=== PATIENT | female | born 2000 | race Caucasian/White ===

== ENCOUNTER 2023-06-09 01:46 | Emergency (ER) | payer OTHER, SELFPAY ==
[2023-06-09 01:50] VITALS: BP 114/79; PULSE 94; RESP 16; TEMP 36.4; O2SAT 98
--- NOTE | 2023-06-09 02:22 | CRLHL7_ITS ---
For Patients: As a result of the Cures Act, medical imaging exams and procedure reports are released immediately into your electronic medical record. You may view this report before your referring provider. If you have questions, please contact your health care provider. INDICATION: T10 pain. No trauma. COMPARISON: None. TECHNIQUE: Frontal lateral views of the thoracic spine. FINDINGS/IMPRESSION : Alignment is anatomic, without subluxation. Vertebral body heights and intervertebral disc spaces are maintained. No displaced fracture is identified. No appreciable degenerative changes are seen. Visualized lungs are clear. Dictated by Joellen Hernández MD @ 06/09/2023 5:07:53 AM (Electronically Signed)
[2023-06-09] MEDS: IBUPROFEN 400 MG TABLET 800 MG PO (02:26)
--- NOTE | 2023-06-09 02:26 | ED.GENADULT ---
HPI - General Adult General Chief complaint: Back Injury/Pain Stated complaint: Back Pain Time Seen by Provider: 06/09/23 02:13 Source: patient Mode of arrival: ambulatory Limitations: no limitations History of Present Illness HPI narrative: Patient presents the emergency department with back pain for 3 days. Mild, achy in nature. No trauma or injury. She woke up an hour ago and the pain was more burning in nature. Because of this, she comes to the emergency room. There is no fever, no vomiting. No itchy rash. She tried taking 1 ibuprofen which would be grossly under dosed for her size yesterday and the day before with no significant improvement in her symptoms. Has not tried Tylenol. She does have some mild nausea for the last hour. Denies chance of . Appetite has been normal. No burning with urination. No flank pain. No shortness of breath or cough. No cardiac symptoms. Past medical history notable for anxiety disorder, fatty liver, asthma. Home meds are Advair, Celexa, albuterol singular. Nonsmoker. Denies alcohol. ROS notable for the musculoskeletal symptoms as above, otherwise denies times 12 systems. Eight emergency room visits in the last 4 years. Related Data Previous Rx's Medication Instructions Recorded celecoxib 200 mg capsule (Celebrex) 200 mg PO BID PRN pain #20 caps 06/09/23 cyclobenzaprine 5 mg tablet 5 - 10 mg (1 - 2 x 5 mg) PO HS PRN 06/09/23 muscle spasm #10 tabs Allergies Allergy/AdvReac Type Severity Reaction Status Date / Time No Known Drug Allergies Allergy Verified 06/09/23 01:50 PFSH PFS Social History Smoking Status: Unknown if ever smoked Non-prescribed substance use: denies use Exam Const: Vital Signs, click to edit/add: Vital Signs - 24 hr 06/09/23 01:50 Temperature 97.5 F L Pulse Rate [Left P ulse Oximeter] 94 Respiratory Rate 16 Blood Pressure [Ri ght Upper Arm] 114/79 Pulse Oximetry 98 Oxygen Delivery Me thod Room Air Documenting provider has reviewed patient's vital signs: yes Common normals: no apparent distress General appearance: cooperative and well kempt HENMT: Common normals: normocephalic Head and scalp: normocephalic Face and sinus: normal facial exam Mouth: oral and palatal mucosa normal Eye: Common normals: conjunctivae normal General eye: normal appearance of both eyes Conjunctiva: conjunctiva(e) normal Neck & C-Spine: Common normals: no lymphadenopathy Resp: Common normals: normal respiratory effort, no use of accessory muscles and clear to auscultation bilaterally Effort & inspection: able to speak in complete sentences Auscultation: clear to auscultation bilaterally Cardio: Common normals: regular rate, regular rhythm, S1 normal heart sound, S2 normal heart sound and no murmurs Rate: regular rate Rhythm: regular rhythm Heart sounds: S1 normal and S2 normal GI: Common normals: Normal to inspection, nondistended, normoactive bowel sounds present, soft to palpation, non-tender, no hepatosplenomegaly and no masses Palpation: soft and no hepatosplenomegaly : Common normals: no CVA tenderness Bladder/kidney exam: no CVA tenderness Back & Pelvis: Common normals: no CVA tenderness and thoracic and lumbar spine normal to inspection Other: Mild tenderness to palpation along T10 area and surrounding paraspinal muscles. Extremity: Common normals: normal to inspection and normal capillary refill Neuro: Speech: speech normal Motor exam: strength 5/5 throughout Psych: Appearance: well kempt Attitude: engaged Activity/motor behavior: appropriate eye contact Memory/cognition: memory grossly intact Insight: fair Judgement: fair Skin: Common normals: no rashes or lesions noted General skin exam: no rashes or lesions noted Course Course ED Course: Suspect musculoskeletal etiology. Cannot exclude pancreatitis, gallbladder disease, urinary infection or other pathology. Recommend x-ray and basic labs and urinalysis to investigate for pancreatitis or gallbladder dysfunction. Will dose appropriate 600 mg p.o. of ibuprofen x1. She would like to be able to drive herself home, therefore I will wait on a muscle relaxant. Will likely prescribe a discharge if no intra-abdominal etiology is found. Reevaluation(s) Time of Reevaluation #1: 04:40 Reevaluation #1: Discussed x-ray findings with patient, all questions answered. Did not get much relief from the ibuprofen but is still not having any significant neurological change. Recommended physical therapy, primary care follow-up. Alarm symptoms reviewed. Suspect musculoskeletal etiology. No signs of pancreatitis, kidney stones or urine infection. Normal labs reviewed. See discharge instructions. Course of Celebrex and p.r.n. Flexeril. Vital Signs Vital signs: Initial Vital Signs Temperature 97.5 F L 06/09/23 01:50 Temperature Source Temporal Artery Scan 06/09/23 01:50 Pulse Rate 94 06/09/23 01:50 Pulse Rhythm Regular 06/09/23 01:50 Respiratory Rate 16 06/09/23 01:50 Blood Pressure 114/79 06/09/23 01:50 Blood Pressure Mean 90 06/09/23 01:50 Blood Pressure Position Sitting 06/09/23 01:50 Pulse Oximetry 98 06/09/23 01:50 Oxygen Delivery Method Room Air 06/09/23 01:50 Vital Signs Temperature 97.5 F L 06/09/23 01:50 Pulse Rate 94 06/09/23 01:50 Respiratory Rate 16 06/09/23 01:50 Blood Pressure 114/79 06/09/23 01:50 Pulse Oximetry 98 06/09/23 01:50 Oxygen Delivery Method Room Air 06/09/23 01:50 Temperature 97.5 F L 06/09/23 01:50 Pulse Rate 94 06/09/23 01:50 Respiratory Rate 16 06/09/23 01:50 Blood Pressure 114/79 06/09/23 01:50 Pulse Oximetry 98 06/09/23 01:50 Oxygen Delivery Method Room Air 06/09/23 01:50 Medical Decision Making Lab Data Lab results reviewed: Yes I reviewed the patient's lab results Lab results narrative: All reassuring Labs: Lab Results 06/09/23 06/09/23 Range/Units 02:55 03:10 WBC 8.46 (4.50-11.00) K/uL RBC 5.53 H (4.00-5.20) m/uL Hgb 17.0 H (12.0-16.0) gm/dL Hct 48.9 (33.0-51.0) % MCV 88 (80-100) fL MCH 31 (26-34) pg MCHC 35 (32-36) gm/dL RDW Coeff of Ashlee 12.3 (11.5-15.5) % Plt Count 246 (140-440) K/uL Neut % (Auto) 63.2 (42.0-72.0) % Lymph % (Auto) 25.8 (20-44) % [place] % (Auto) 7.8 (0.0-11.0) % Eos % (Auto) 2.7 (0.0-7.0) % Baso % (Auto) 0.4 (0.0-3.0) % Neut # (Auto) 5.35 (1.7-7.0) K/uL Lymph # (Auto) 2.18 (0.90-2.90) K/uL [place] # (Auto) 0.70 (0.00-0.90) K/UL Eos # (Auto) 0.23 (0.00-0.50) K/uL Baso # (Auto) 0.03 (0.00-0.30) K/uL Abs Immat Gran (auto) 0.01 (0.00-0.30) K/uL Imm/Tot Granulo (auto) 0.1 % Sodium 141 (135-149) mmol/L Potassium 4.1 (3.6-5.1) mmol/L Chloride 105 (96-114) mmol/L Carbon Dioxide 27 (20-32) mmol/L Anion Gap 9 (7-15) mEq/L BUN 22 (5-24) mg/dL Creatinine 0.7 (0.5-1.5) mg/dL Estimated GFR 125 ml/min Glucose 91 (60-115) mg/dL Calcium 9.5 (8.4-10.6) mg/dL Total Bilirubin 0.8 (0.1-1.5) mg/dL AST 32 (12-35) U/L ALT 41 H (4-35) U/L Alkaline Phosphatase 48 (40-150) U/L C-Reactive Protein < 0.5 L (0.5-1.0) mg/dL Total Protein 8.0 (6.0-8.3) g/dL Albumin 4.9 (3.3-5.0) g/dL Lipase 70 (23-300) U/L Urine Color Yellow (Yellow) Urine Appearance Clear (Clear) Urine pH 7.0 (5.0-8.5) Ur Specific [place] 1.020 (1.000-1.030) Urine Protein Negative (Negative) Urine Glucose (UA) Negative (Negative) Urine Ketones Negative (Negative) Urine Blood Negative (Negative) Urine Nitrite Negative (Negative) Urine Bilirubin Negative (Negative) Urine Urobilinogen 0.2 (0.2-1.0) Ur Leukocyte Esterase Negative (Negative) Imaging Data Thoracic spine XR: Attestation: I have reviewed the pertinent imaging results. My impression: Mild scoliosis but no obvious fracture. Disc heights are preserved. Radiologist's impression: FINDINGS/IMPRESSION : Alignment is anatomic, without subluxation. Vertebral body heights and intervertebral disc spaces are maintained. No displaced fracture is identified. No appreciable degenerative changes are seen. Visualized lungs are clear. Discharge Plan Discharge Clinical Impression: Mechanical back pain Patient Disposition: Home, Self-Care Condition: Stable Instructions: Thoracic Back Strain (ED) Additional Instructions: As we discussed, there are no signs of any serious medical reason for your back pain. No signs of a kidney stone, bladder infection, pancreatitis or gallbladder issues. This is good news. You do have some mild scoliosis in her back which does unfortunately put you at higher risk of some muscular type back pain. This is not dangerous but it is likely to bother you again. I would recommend a course of physical therapy to strengthen your back. You may also consider doing chiropractic manipulation to help with her pain. For pain, I recommend Tylenol 1000 mg every 6 hours as needed. It is okay to use [id number] sleep aids such as melatonin or Tylenol p.m. as needed. You may also use topical patches like Salonpas, Wilmer-Talavera, or other topical agents. I will give you prescription for Celebrex, a common anti-inflammatory pain medication. It is non drowsy. You may use it up to twice daily. I do not recommend additional Aleve or ibuprofen if you are taking the Celebrex. I will also give you a small supply of Flexeril, a muscle relaxant to use at bedtime if needed. This will cause some drowsiness but may be a good option for you if the pain is preventing sleep. I do recommend that you follow-up with your primary care doctor to discuss the long-term plan. Activity Level: No Restrictions Discharge Diet: Regular Prescriptions: New celecoxib [Celebrex] 200 mg capsule 200 mg PO BID PRN (Reason: pain) Qty: 20 0RF cyclobenzaprine 5 mg tablet 5 - 10 mg PO HS PRN (Reason: muscle spasm) Qty: 10 0RF Follow Up/Referrals: Neela Yanez DO [Primary Care Provider] - Stand Alone Forms: MyHealth Info Instructions
[2023-06-09 03:08] LABS: Appearance Urine Clear (Clear); Bilirubin Urine Negative (Negative); Blood Urine Negative (Negative); Color Urine Yellow (Yellow); Glucose Urine Negative (Negative); Ketones Urine Negative (Negative); Leukocyte Esterase Urine Negative (Negative); Nitrite Urine Negative (Negative); Protein Urine Negative (Negative); Urobilinogen Urine 0.2 (0.2-1.0)
--- OUTSIDE RECORDS SUMMARY | 2023-06-09 03:09 | XMS_ITS | Patient Health Record ---
Author Name Unknown Organization Unknown Care Team Providers Care Television News Reporter Name Role Phone MIKE YARBROUGH NP Primary Care Provider TSACY OVIEDO LCSW Unavailable [phone] DARLING REN Unavailable [phone] ALLERGIES No Known Allergies REASON FOR REFERRAL Reason patient feels therap y would help with anxiety and depression along with prozac Diagnosis 1 Anxiety (F41.9) Diagnosis 2 Reactive depression (F32.9) Referral Organization zzz do not use29 [facility] Referring Provider First Name TRISTAN Referring Provider Last Name HERI Referring Provider Speciality Nurse Haylie garcia Referred Organization [facility] Referred Provider STACY OVIEDO Referred Address [address] [place] [address],[facility] [address], [place],[address], Referred Provider Specialty Licensed Roxanna laws [employer] Consultant General Notes Laura Paul 06/02 08:45:33 AM >Approved for 2 per every 1 week for 13 weeks. Referral Priority Routine Reason Rt FA tatoo with Fir m Papules; No granuloma ? sarcoidal reaction; Please assess. Diagnosis 1 Tattoo reaction (L92 .3) [facility]erring Provider First Name MIKE Referring Provider Last Name ZENON Referring Provider Speciality Nurse Haylie garcia Referred Provider Specialty Dermatology General Notes Leslie Bartlett 2022 05:18:47 PM >Spoke with patient regarding referral to schedule dermatology appointment. Patient states out of town in January and other commitments in March. Patient receptive of return call with dermatology schedule to schedule appointment., Leslie Bartlett 02/11/2023 01:31:31 PM >VM left informing patient of Zena 11 availability to schedule dermatology appointment., Lynda Smith 03/17/2023 03:32:39 PM >S/W pt, scheduled appt for 04/15/2023 @ 10:30, Lynda Smith 05/12/2023 03:07:56 PM >Pt seen on 04/15/2023 Referral Priority Routine Referral Appointment Date 04/15/2023 MEDICATIONS Medication SIG (Take, Route, Frequency, Duration) Notes Start Date End Date Status Advair HFA 115-21 MCG/ACT 2 puffs Inhala tion Twice a day for 30 days Active Triamcinolone Acetonide 0.1 % 1 application Twice a day x 10 days then as needed Externally Twice a day for 30 days 01/23/2023 Active Cetirizine HCl 10 MG 1 tablet Orally Onc e a day as needed for 90 days 01/23/2023 Active Singulair 10 MG 1 tablet Orally Once a day for 90 days Active Triamcinolone Acetonide 0.1 % 1 application Externally apply to affected areas up to 2 times daily PRN itch for 90 days 04/15/2023 Active CeleXA 10 MG 1 tablet Orally Once a day Active Levaquin Not-Taking Lexapro 20 MG 1 tablet Orally Once a day Not-Taking PROzac 20 MG 1 capsule Orally Onc e a day for 90 days Not-Taking Albuterol Sulfate HFA 108 (90 Base) MCG/ACT 1 puff as needed Inhalation every 4 hrs for 30 days Active PROBLEMS Problem Type ICD Code Onset Dates Problem Status W/U Status Risk SNOMED Code Notes Problem Mixed hyperlipidemia (E78.2) Active confirmed 267829404 Problem Paresthesia of skin (R20.2) Active confirmed 89768444 Problem Anxiety (F41.9) Active confirmed 801643 02 Problem Seasonal allergies (J30.2) Active confirmed 897441681 Problem Morbid obesity (E66.01) Active confirmed 731761992 Problem Depression with anxiety (F41.8) Active confirmed 434601263 Problem Menorrhagia with regular cycle (N92.0) Active confirmed 546548857 Problem Carpal tunnel syndrome of right wrist (G56.01) Active confirmed 16516186 Problem Mild persistent asthma without complication (J45.30) Active confirmed 812654930 Problem Reactive depression (F32.9) Active confirmed 67611248 Problem Lentigines (L81.4) Active confirmed Increased melan in pigmentation (36485155) Problem Mild persistent asthma with acute exacerbation (J45.31) Problem resolved confirmed 552448596602010 VITAL SIGNS Heart Rate 95 /min 01/23/2023 Ni Puentes 01/23/2023 02:51:59 PM > Temperature 98.7 degrees Fahrenheit 01/23/2023 Cassie Beyer 01/23/2023 02:51:59 PM > Respiratory Rate 16 /min 01/23/2023 Brandi Puentes 01/23/2023 02:51:59 PM > Oximetry 99 % 01/23/2023 Ni Puentes 01/23/2023 02:51:59 PM > Blood pressure diastolic 65 mm Hg 01/23/2023 Cassie Douglas 01/23/2023 02:51:59 PM > Height-cm 162.56 cm 04/15/2023 Lynda Smith MA 04/15/2023 11:12:12 AM > Weight-kg 84.91 kg 04/15/2023 Lynda Smith MA 04/15/2023 11:12:12 AM > Height 64 in 04/15/2023 Lynda Smith MA 04/15/2023 11:12:12 AM > Blood pressure systolic 95 mm Hg 01/23/2023 Cassie Beyer 01/23/2023 02:51:59 PM > Weight 187.2 lbs 04/15/2023 Lynda Smith MA 04/15/2023 11:12:12 AM > BMI 32.13 kg/m2 04/15/2023 Lynda Smith MA 04/15/2023 11:12:12 AM > Encounters Encounter Location Date Provider Diagnosis [facility] [address] [address] 07/01/2022 STACY OVIEDO [facility] [address] [address] 07/02/2022 SHANTRINIA PREET [facility] [address] [place] [address] 07/02/2022 SHANTRINIA PREET [facility] [address] [place] [address] 07/02/2022 SHANTRINIA PREET [facility] [address] [place] [address] 07/04/2022 SHANTRINIA PREET Anxiety F41.9 [facility] [address] [place] [facility] [place] [address] 07/11/2022 SHANTRINIA PREET Anxiety F41.9 [facility] [address] [place] [address] 07/11/2022 MIKE YARBROUGH Encounter for screening for infections with a predominantly sexual mode of transmission Z11.3 [facility] [address] [place] [address] 07/12/2022 SHANTRINIA PREET [facility] [address] [place] [address] 07/19/2022 SHANTRINIA PREET Anxiety F41.9 [facility] [address] [place] [address] 08/01/2022 MIKE YARBROUGH [facility] [address] [place] [address] 08/02/2022 SHANTRINIA PREET Anxiety F41.9 [facility] [address] [place] [address] 08/20/2022 SHANTRINIA PREET Anxiety F41.9 [facility] [address] [place] [address] 09/04/2022 SHANTRINIA PREET Anxiety F41.9 [facility] [address] [place] [address] 09/18/2022 SHANTRINIA PREET Anxiety F41.9 [facility] [address] [place] [address] 11/07/2022 SHANTRINIA PREET Anxiety F41.9 [facility] [address] [place] [address] 01/23/2023 [facility] Seasonal allergies J30.2 ; Tattoo reaction L92.3 ; Throat discomfort R07.0 and Mild persistent asthma without complication J45.30 [facility] [address] [place] [address] 02/27/2023 [facility] [address] [place] [address] 03/18/2023 [facility] [address] [place] [address] 04/01/2023 [facility] [address] [place] [address] 04/15/2023 DARLING LACY [facility] [address] [place] [address] 04/15/2023 DARLING LACY Keratosis pilaris L85.8 and Lentigines L81.4 [facility] [address] [place] [address] 04/28/2023 [facility] [address] [place] [address] 05/22/2023 [facility] [address] [place] [address] 05/23/2023 MIKE YARBROUGH ASSESSMENTS Encounter Date Diagnosis Assessment Notes Treatment Notes Treatment Clinical Notes 07/04/2022 Anxiety (ICD-10 - F41.9) 07/11/2022 Anxiety (ICD-10 - F41.9) 07/11/2022 Encounter for screening for infections with a predominantly sexual mode of transmission (ICD-10 - Z11.3) 07/19/2022 Anxiety (ICD-10 - F41.9) 08/02/2022 Anxiety (ICD-10 - F41.9) 08/20/2022 Anxiety (ICD-10 - F41.9) 09/04/2022 Anxiety (ICD-10 - F41.9) 09/18/2022 Anxiety (ICD-10 - F41.9) 11/07/2022 Anxiety (ICD-10 - F41.9) 01/23/2023 Seasonal allergies (ICD-10 - J30.2) 01/23/2023 Tattoo reaction (ICD-10 - L92.3) 04/15/2023 Keratosis pilaris (ICD-10 - L85.8) Discussed in detail Reassurance given Recommend to use a loofa sponge to exfoliate and moisturizing lotion Follow up PRN 04/15/2023 Lentigines (ICD-10 - L81.4) 01/23/2023 Throat discomfort (ICD-10 - R07.0) Sore Throat: Care Instructions material was printed Likely due to allergies; discussed salt water gargles. 01/23/2023 Mild persistent asthma without complication (ICD-10 - J45.30) Patient reports not needing refill. 07/04/2022 Other Visit Start Time: 10:00 AM Visit end time: 10:58 AM Clinician discussed the limits of confidentiality and time limitations with client. Clinician utilized talk therapy to engage, build rapport, and obtain the information used to complete the assessment. Clinician praised client for being able to identify strengths, something to be proud of, and coping skills. Clinician discussed a different way to journal that could also help. Clinician provided understanding to client and validated her. Clinician will work with client to develop tools and coping skills to help reduce negative symptoms and meet her goals. 04/15/2023 Other Medication discussed. Plan printed and provided to patient. For each diagnosis; data was reviewed, the diagnosis, differential diagnosis, management, options, risks and treatment plan were discussed with the patient. The patient showed and assured me of good understanding of all discussions and directions. Provided: Patient Education 01/23/2023 Other Please note david t part of this not was created by [employer]. An attempt at proofreading has been made to minimize errors. If you feel that part of the information in the note is not correct and could be related to dictation error, please let us know. Errors in punctuation, grammar, content may occur but we retain the right to modify the information in the event of errors. 09/04/2022 Other Visit Start Time: 3:00 PM Visit End Time: 3:27 PM Clinician utilized talk therapy to engage. Clinician provided active listening. Clinician praised client for practicing a bed time routine. Clinician asked client what could have triggered her. Clinician validated client's feelings. Clinician provided understanding regarding thoughts of and feeling worried about her health. Clinician asked client if she feels like something is wrong with her health. Clinician encouraged client to push the negative thoughts aside and replace them with positive thoughts. Clinician wished client well on her interview tomorrow. 09/18/2022 Other Visit Start Time: 3:00 PM Visit End Time: 3:51 PM Clinician utilized talk therapy to engage. Clinician provided active listening. Clinician shared happiness that she had a few days where she was not panicking. Clinician asked why she did something that would provoke her anxiety, and what made her check. Clinician encouraged client to limit activities such as this, especially if it is going to cause her anxiety. Clinician suggested that client distracts herself at that time. Clinician shared happiness regarding client's new job. Clinician asked client what else may be causing her to be anxious. Clinician validated client's feelings, and provided understanding. Clinician praised client for being self-aware and knowledgeable about the things that are going on with her. Clinician praised client for utilizing a coping skill. Clinician encouraged client to utilize self affirmations to encourage and motivate herself. Clinician also encouraged client to evaluate herself when she is experiencing emotions and symptoms, and talk herself through them if possible. Clinician asked client if she struggled with anxiety her whole life. Clinician continued to validate client, and thanked her for sharing. Clinician shared happiness that the medication helps. Clinician asked client if she would still be anxious if she had answers regarding her liver issue. Clinician shared hope that she will be able to get accurate answers soon. Clinician suggested that client try to do her best to limit triggers at this time. 11/07/2022 Other Visit Start Time: 1:00 PM Visit End Time: 1:54 PM Clinician utilized talk therapy to engage. Clinician provided active listening. Clinician provided empathy regarding the job situation. Clinician shared happiness that client has found out the problem and it is reversible. Clinician praised client for choosing to live her life. Clinician praised client regarding her weight loss journey and encouraged her to continue. Clinician validated client's feelings. Clinician suggested that client is going home for vacation, and it is okay for her to want to be in a comfortable space. Clinician encouraged client to communicate how she feels to her mother, and provided examples. Clinician encouraged client not to feel obligated to stay if it is not comfortable for her. Clinician encouraged client to set boundaries regarding her parents and the situation. Clinician inquired about client's anxiety. Clinician praised client for her stated progress, and shared happiness. 07/19/2022 Other Visit Start Time: 2:00 PM Visit End Time: 2:20 PM Clinician utilized talk therapy to engage. Clinician provided active listening. Clinician shared happiness that she made it through the ball, and did not get sick. Clinician asked Client how things have been. Clinician validated client's feelings. Clinician shared happiness that client had support from her previous primary doctor, and that she was improving. Clinician shared hope that she will get answers. Clinician encouraged client to look into ways to improve the liver such as drinking water, healthy diet, etc. Clinician shared excitement regarding client's interview, and shared hope that she gets the job. Clinician shared happiness that client's medication continues to work well for her. 08/02/2022 Other Visit Start Time: 11:00 AM Visit End Time: 11:41 AM Clinician utilized talk therapy to engage. Clinician provided active listening. Clinician shared happiness that client had a good Thanksgiving holiday. Clinician inquired about negative symptoms. Clinician asked questions and explored what client believes is going on with her health. Clinician pointed out that client was recently informed that her health was good, and asked why she still may have concerns. Clinician validated client's feelings. Clinician asked client what has helped to reduce her anxiety thus far. Clinician praised client for having multiple positive tools and coping skills, and encouraged her to continue utilizing them.Clinician pointed out that muscle tension is a symptom of anxiety. Clinician introduced and discussed progressive relaxation and guided meditation to also try to help client, and provided instructions. Clinician inquired about any negative symptoms during the day, and any other issues. Clinician continued to validate client. Clinician suggested that client try to stay connected with her neighbors through social media, video applications, telephone, or other types of communication platforms. Clinician reminded client to call in to schedule follow-up sessions. 07/11/2022 Other Visit Start Time: 9:00 AM Visit End Time: 9:24 AM Clinician utilized talk therapy to engage. Clinician provided active listening. Clinician inquired about negative symptoms. Clinician praised client for talking with her doctor about her concerns, and being comforted. Clinician validated client's feelings, and provided understanding. Clinician suggested that client takes safety precautions as much as she can such as hand washing, wearing mask, using hand manufacturing lead. Clinician praised client for already thinking about these things. Clinician suggested that client can also boost her immune system by drinking teas, taking supplements, and using Lysol to spray personal areas that they will be in. 08/20/2022 Other Visit Start Time: 3:00 PM Visit End Time: 3:48 PM Clinician utilized talk therapy to engage. Clinician provided active listening. Clinician inquired about what happened yesterday. Clinician validated client's feelings, and shared happiness that client had some control over her panic attack, and praised her. Clinician shared happiness that she was able to get some rest today. Clinician encouraged client to pay attention to see if the pain has anything to do with her not getting sleep or rest. We also discussed client acknowledging what else could be going on instead of thinking of immediate demise. Clinician asked client if she has taken Melatonin. Clinician continued to validate client. Clinician suggested client try to create a nighttime routine with teas, exercise, or boring television shows. Clinician praised client for reading, and suggested that this was a good coping skill. Clinician asked client how she feels now that the appointment is over. Clinician shared hope that everything will be resolved. Clinician praised client for taking care of her health, and encouraged her to advocate for herself if she does not feel heard. PLAN OF TREATMENT Pending Test Test Name Order Date Urine Dipstick (Point of Care) 2 Urine Dipstick (Point of Care) 1 US Transvaginal 06/11/2021 Immunoglobulins A/G/M, Qn, Ser 2 Urinalysis, Routine no Micro if negative 05/14/2021 Urinalysis, Routine no Micro if negative 06/11/2021 Ferritin, Serum 05/30/2022 CBC With Differential/Platelet 2 Actin (Smooth Muscle) Antibody 2 Comp. Metabolic Panel (14) 05/30/2022 Comp. Metabolic Panel (14) 10/18/2021 CHEPE 05/30/2022 TSH Rfx on Abnormal to Free T4 3 UA/M w/rflx Culture, Routine 10/18/2021 Chlamydia/GC Amplification 07/11/2022 Insurance Providers Payer Name Payer Address Payer Phone Subscriber Number Group Number Insured Name Patient Relationship to Insured Coverage Start Date Coverage End Date [facility] [address] [place] [address] [phone] [id number] Lorie Vizcaino Self - patient is the insured [facility] [address] [place] [address] [phone] [id number] Prieto Vizcaino Spouse - patient is the spouse of the insured MEDICAL (GENERAL) HISTORY Medical History History ICD Code asthma anxiety depression ADD Elevated hemoglobin D58.2 Mild persistent asthma with acute exacer bation (resolved 01/23/2023) undefined
[2023-06-09 03:19] LABS: Basophils Absolute Auto 0.03 K/uL (0.00-0.30); Basophils Percent Auto 0.4 % (0.0-3.0); Eosinophils Absolute Auto 0.23 K/uL (0.00-0.50); Eosinophils Percent Auto 2.7 % (0.0-7.0); Hematocrit 48.9 % (33.0-51.0); Immature Granulocytes Abs Auto 0.01 K/uL (0.00-0.30); Immature Granulocytes Pct Auto 0.1 %; Lymphocytes Absolute Auto 2.18 K/uL (0.90-2.90); Lymphocytes Percent Auto 25.8 % (20-44); Mean Corpuscular HGB Conc 35 gm/dL (32-36); Mean Corpuscular Hemoglobin 31 pg (26-34); Mean Corpuscular Volume 88 fL (80-100); Monocytes Percent Auto 7.8 % (0.0-11.0); Neutrophils Absolute Auto 5.35 K/uL (1.7-7.0); Neutrophils Percent Auto 63.2 % (42.0-72.0); Platelet Count* 246 K/uL (140-440); RDW Coefficient of Variation % 12.3 % (11.5-15.5); Red Blood Count 5.53 m/uL (4.00-5.20); White Blood Count* 8.46 K/uL (4.50-11.00)
[2023-06-09 03:20] LABS: Slide Review Reflex No
[2023-06-09 03:33] LABS: Albumin* 4.9 g/dL (3.3-5.0); Chloride* 105 mmol/L (96-114); Potassium* 4.1 mmol/L (3.6-5.1); Sodium* 141 mmol/L (135-149)
[2023-06-09 03:35] LABS: Bilirubin Total* 0.8 mg/dL (0.1-1.5); Creatinine* 0.7 mg/dL (0.5-1.5); Estimated Glomerular Filt Rate 125 ml/min
[2023-06-09 03:36] LABS: Alanine Aminotransferase* 41 U/L (4-35); Alkaline Phosphatase* 48 U/L (40-150); Anion Gap 9 mEq/L (7-15); Aspartate Amino Transferase* 32 U/L (12-35); Blood Urea Nitrogen* 22 mg/dL (5-24); Carbon Dioxide* 27 mmol/L (20-32); Glucose* 91 mg/dL (60-115); Lipase* 70 U/L (23-300)
[2023-06-09 03:37] LABS: Calcium* 9.5 mg/dL (8.4-10.6)
[2023-06-09 03:39] LABS: C Reactive Protein* < 0.5 mg/dL (0.5-1.0)
[2023-06-09 05:13] VITALS: BP 136/62; PULSE 72; RESP 16; O2SAT 98
== END 2023-06-09 05:14 | disposition home or self-care (01) ==
PROVIDERS: Emergency Provider Family Medicine; PCP Family Medicine
DX: M54.9 Dorsalgia, unspecified (principal)
CPT/HCPCS: 36415; 72070; 80053; 81003; 83690; 85025; 86140; 99283; 99284; A9270

== ENCOUNTER 2023-06-23 22:37 | Emergency (ER) | payer OTHER, SELFPAY ==
[2023-06-23 23:04] VITALS: BP 119/81; PULSE 98; RESP 16; TEMP 36.6; O2SAT 98
--- NOTE | 2023-06-23 23:55 | ED.GENADULT ---
HPI - General Adult General Time Seen by Provider: 23:55 Date Seen: 06/23/23 Chief complaint: Unspecified Complaint, Adult Stated complaint: extreme dizziness, shortness of breath Time Seen by Provider: 06/23/23 23:55 Source: patient and RN notes reviewed Mode of arrival: ambulatory Limitations: no limitations History of Present Illness HPI narrative: Lorie is a very pleasant 23-year-old female with history of anxiety, asthma, fibrosis of the liver secondary to fatty liver who comes to the emergency room with multiple complaints. Patient notes that 5 days ago she began experiencing shortness of breath that was both present at rest and with activity. However, she denied any wheezing, stridor, cough. She has not had fever chills cook sore throat or runny nose. She then started noticing episodes of dizziness sometimes when she would get up but sometimes when she was just sitting. When I asked her to clarify lightheadedness versus vertigo she felt like it was both and that earlier in the waiting room she felt like maybe the will room was spinning. She notes that she has also noticed some lumps in her upper breast that she had not noticed before. This is bilateral. They are not painful. Finally, she states that she was looking through her old medical records and noticed that her D-dimer was elevated at an ER visit in [place]. Their reference was less than 230 being normal and her value was 269. She does admit that she then good gold this and is worried about blood clots. She notes that she herself has never had a blood clot but her mother has. She denies any calf pain, recent extended car rides or periods of immobility. As I leave the room she is coughing. No known ill contacts at this time. Related Data Previous Rx's Medication Instructions Recorded celecoxib 200 mg capsule (Celebrex) 200 mg PO BID PRN pain #20 caps 06/09/23 cyclobenzaprine 5 mg tablet 5 - 10 mg (1 - 2 x 5 mg) PO HS PRN 06/09/23 muscle spasm #10 tabs Allergies Allergy/AdvReac Type Severity Reaction Status Date / Time No Known Drug Allergies Allergy Verified 06/09/23 01:50 Review of Systems Status of ROS: Reports: 10 or more systems reviewed and unremarkable except as noted in History and below Const: Denies: fever, chills, fatigue or night sweats Eyes: Denies: blurry vision ENMT: Denies: throat pain, throat swelling, difficulty swallowing, hoarseness, ear pain, nasal discharge or nasal congestion Cardio: Reports: lightheadedness and shortness of breath with exertion; Denies: chest pain or swelling of feet/ankles Resp: Reports: shortness of breath and cough; Denies: wheezing or stridor GI: Denies: abdominal pain, nausea, vomiting, diarrhea or difficulty swallowing : Denies: painful urination or urinary frequency Neuro: Denies: headache, numbness in extremities or weakness in extremities Psych: Reports: anxiety Endo: Denies: fatigue Allergy/Immuno: Denies: throat swelling or wheezing PFSH PFSH Social History Smoking Status: Unknown if ever smoked Do you use any of these nicotine containing products: None Second hand tobacco smoke exposure: No How often do you have a drink containing alcohol: never How often do you have six or more drinks on one occasion: Never AUDIT-C Alcohol total score: 0 Non-prescribed substance use: denies use service: No Exam Narrative: Exam Narrative: Lorie is alert and oriented. When I enter the room she and her significant other are watching a video together and laughing. Ears eyes nose clear. Oral cavity with moist mucous membranes. Neck is supple without lymphadenopathy. Heart with borderline tachycardia but normal rhythm. No additional heart sounds or murmurs are noted.. Lungs are clear bilaterally. Palpation of breast shows very dense tissue. I do not note any large masses but admittedly tell patient that I M certainly not an expert in this area. Abdomen is soft nontender. No unusual rashes noted. Calf muscles without discomfort. No lower extremity edema and negative Homans sign. Const: Vital Signs, click to edit/add: Vital Signs - 24 hr 06/23/23 23:04 Temperature 97.9 F Pulse Rate [Left P ulse Oximeter] 98 Respiratory Rate 16 Blood Pressure [Ri ght Upper Arm] 119/81 Pulse Oximetry 98 Oxygen Delivery Me thod Room Air Documenting provider has reviewed patient's vital signs: yes Course Course ED Course: Lorie is a 23-year-old female with a family history of DVT who is noted 5 days of shortness of breath at with lightheadedness/vertigo. Will check lab values including CBC, comprehensive, CRP and D-dimer. Chest x-ray given her history of asthma and COVID test. Reevaluation(s) Reevaluation #1: Patient notes that she has also been experiencing upper back discomfort. I do palpate her spine and I am not eliciting any discomfort. She does describe having history of reflux for many years which improved when she lost weight. Vital Signs Vital signs: Initial Vital Signs Temperature 97.9 F 06/23/23 23:04 Temperature Source Temporal Artery Scan 06/23/23 23:04 Pulse Rate 98 06/23/23 23:04 Pulse Rhythm Regular 06/23/23 23:04 Respiratory Rate 16 06/23/23 23:04 Blood Pressure 119/81 06/23/23 23:04 Blood Pressure Mean 93 06/23/23 23:04 Blood Pressure Position Sitting 06/23/23 23:04 Pulse Oximetry 98 06/23/23 23:04 Oxygen Delivery Method Room Air 06/23/23 23:04 Vital Signs Temperature 97.9 F 06/23/23 23:04 Pulse Rate 98 06/23/23 23:04 Respiratory Rate 16 06/23/23 23:04 Blood Pressure 119/81 06/23/23 23:04 Pulse Oximetry 98 06/23/23 23:04 Oxygen Delivery Method Room Air 06/23/23 23:04 Temperature 97.9 F 06/23/23 23:04 Pulse Rate 98 06/23/23 23:04 Respiratory Rate 16 06/23/23 23:04 Blood Pressure 119/81 06/23/23 23:04 Pulse Oximetry 98 06/23/23 23:04 Oxygen Delivery Method Room Air 06/23/23 23:04 Medical Decision Making MDM Narrative Medical decision making narrative: 1. Upper back pain-at this time I note that patient had been seen previously for this approximately 2 weeks ago. Chest x-ray reassuring as are her laboratory values. Patient does describe having history of reflux which improved when she lost weight. I wonder if perhaps she is experiencing some esophageal discomfort. Recommend a short course of Pepcid or omeprazole. Follow-up with primary physician if not improving 2. Shortness of breath-I am suspecting that the shortness of breath and dizziness may be secondary to anxiety. She seems reassured at this time that her D-dimer is normal given her family history of clotting in mom. Heart rate has improved to 68 while she has been here and oxygen saturations were appropriate. 3. Disposition-home at this time. Seek medical attention for a breast recheck as she has noticed a lumpiness in her breast bilaterally. Would also recheck with her primary MD if she has ongoing other symptoms. At this time I have no evidence of an acute coronary event, pericarditis, PE, COVID or other respiratory infection. Reassurance at this time. Medical Records Medical records reviewed: Yes I reviewed the patient's medical records Lab Data Lab results reviewed: Yes I reviewed the patient's lab results Labs: Lab Results 06/24/23 06/24/23 Range/Units 00:25 00:28 WBC 7.87 (4.50-11.00) K/uL RBC 5.27 H (4.00-5.20) m/uL Hgb 16.0 (12.0-16.0) gm/dL Hct 45.7 (33.0-51.0) % MCV 87 (80-100) fL MCH 30 (26-34) pg MCHC 35 (32-36) gm/dL RDW Coeff of Ashlee 11.8 (11.5-15.5) % Plt Count 230 (140-440) K/uL Neut % (Auto) 64.4 (42.0-72.0) % Lymph % (Auto) 26.9 (20-44) % Calhoun % (Auto) 5.8 (0.0-11.0) % Eos % (Auto) 2.3 (0.0-7.0) % Baso % (Auto) 0.5 (0.0-3.0) % Neut # (Auto) 5.06 (1.7-7.0) K/uL Lymph # (Auto) 2.12 (0.90-2.90) K/uL Calhoun # (Auto) 0.50 (0.00-0.90) K/UL Eos # (Auto) 0.18 (0.00-0.50) K/uL Baso # (Auto) 0.04 (0.00-0.30) K/uL Abs Immat Gran (auto) 0.01 (0.00-0.30) K/uL Imm/Tot Granulo (auto) 0.1 % D-Dimer Quant (PE/DVT) < 0.27 (0.00-0.50) ug/ml Sodium 142 (135-149) mmol/L Potassium 4.0 (3.6-5.1) mmol/L Chloride 107 (96-114) mmol/L Carbon Dioxide 24 (20-32) mmol/L Anion Gap 11 (7-15) mEq/L BUN 19 (5-24) mg/dL Creatinine 0.7 (0.5-1.5) mg/dL Estimated GFR 125 ml/min Glucose 92 (60-115) mg/dL Calcium 9.4 (8.4-10.6) mg/dL Magnesium 2.3 (1.5-2.6) mg/dL Total Bilirubin 0.6 (0.1-1.5) mg/dL AST 40 H (12-35) U/L ALT 38 H (4-35) U/L Alkaline Phosphatase 44 (40-150) U/L C-Reactive Protein < 0.5 L (0.5-1.0) mg/dL Total Protein 7.5 (6.0-8.3) g/dL Albumin 4.7 (3.3-5.0) g/dL 25-OH Vitamin D Total 42 (30-80) ng/mL SARS-CoV-2 (PCR) Negative SARS-CoV-2 (Negative) Influenza Type A (PCR) Negative PCR FLU A (Negative) Influenza Type B (PCR) Negative PCR FLU B (Negative) RSV (PCR) Negative PCR RSV (Negative) Imaging Data Chest x-ray: Attestation: I have reviewed the pertinent imaging results. My impression: No infiltrates widened mediastinum or unusual findings. Radiologist's impression: Cardiovascular and mediastinum: Heart size and vasculature are normal in caliber and appearance. Mediastinum is within normal limits. Lungs and pleural space: Lungs are clear. No sign of infiltrate or mass. No sign of pleural effusion. No pneumothorax. Bones and soft tissues: No significant findings. ECG Data Attestation: I personally reviewed and interpreted this ECG as follows: Interpretation: EKG without evidence of acute coronary event. Very low amplitude with normal QT and TX intervals. Discharge Plan Discharge Clinical Impression: Shortness of breath, Pain, upper back Patient Disposition: Home, Self-Care Condition: Improved Additional Instructions: Increase fluids. You may want to consider a trial of Pepcid were omeprazole for a week. Follow-up with your primary MD for a recheck if you are not improving. Return to the emergency room as needed. Follow-up with OBGYN or your primary caregiver for breast recheck. Prescriptions: No Action celecoxib [Celebrex] 200 mg capsule 200 mg PO BID PRN (Reason: pain) Qty: 20 0RF cyclobenzaprine 5 mg tablet 5 - 10 mg PO HS PRN (Reason: muscle spasm) Qty: 10 0RF Follow Up/Referrals: Neela Yanez DO [Primary Care Provider] - Stand Alone Forms: MyHealth Info Instructions
--- NOTE | 2023-06-24 00:13 | CRLHL7_ITS ---
For Patients: As a result of the Century Cures Act, medical imaging exams and procedure reports are released immediately into your electronic medical record. You may view this report before your referring provider. If you have questions, please contact your health care provider. Indication: Dizziness and chest pain Technique: Chest 1 view Comparison: September 14, 2018 Findings/Impression: Cardiovascular and mediastinum: Heart size and vasculature are normal in caliber and appearance. Mediastinum is within normal limits. Lungs and pleural space: Lungs are clear. No sign of infiltrate or mass. No sign of pleural effusion. No pneumothorax. Bones and soft tissues: No significant findings. Dictated by Marion Vega MD @ 06/24/2023 1:14:05 AM (Electronically Signed)
--- OUTSIDE RECORDS SUMMARY | 2023-06-24 00:19 | XMS_ITS | Patient Health Record ---
Author Name Unknown Organization Unknown Care Team Providers Care Occupational Health And Safety Adviser Name Role Phone MIKE YARBROUGH NP Primary Care Provider STACY OVIEDO LCSW Unavailable DARLING REN Unavailable [phone] ALLERGIES No Known Allergies REASON FOR REFERRAL Reason Rt FA tatoo with Fir m Papules; No granuloma ? sarcoidal reaction; Please assess. Diagnosis 1 Tattoo reaction (L92 .3) Referral Organization [facility] Referring Provider First Name MIKE Referring Provider Last Name ZENON Referring Provider Speciality Nurse Prac titioner Referred Provider Specialty Dermatology General Notes Leslie Bartlett 2022 05:18:47 PM >Spoke with patient regarding referral to schedule dermatology appointment. Patient states out of town in January and other commitments in March. Patient receptive of return call with dermatology schedule to schedule appointment.Dhruv Kathy 02/11/2023 01:31:31 PM > left informing patient of Zena 11 availability to schedule dermatology appointment., Lynda Smith 03/17/2023 03:32:39 PM >S/W pt, scheduled appt for 04/15/2023 @ 10:30Sarah Diane 05/12/2023 03:07:56 PM >Pt seen on 04/15/2023 [...] Notes Problem Mixed hyperlipidemia (E78.2) Active confirmed 160425408 Problem Paresthesia of skin (R20.2) Active confirmed 63098402 Problem Anxiety (F41.9) Active confirmed 115180 02 Problem Seasonal allergies (J30.2) Active confirmed 389908846 Problem Morbid obesity (E66.01) Active confirmed 799845862 Problem Depression with anxiety (F41.8) Active confirmed 335767565 Problem Menorrhagia with regular cycle (N92.0) Active confirmed 620754974 Problem Carpal tunnel syndrome of right wrist (G56.01) Active confirmed 41661137 Problem Mild persistent asthma without complication (J45.30) Active confirmed 911729304 Problem Reactive depression (F32.9) Active confirmed 10060702 Problem Lentigines (L81.4) Active confirmed Increased melan in pigmentation (44207570) Problem Mild persistent asthma with acute exacerbation (J45.31) Problem resolved confirmed [id number] VITAL SIGNS Heart Rate 95 /min 01/23/2023 [...] > Encounters Encounter Location Date Provider Diagnosis [facility] [address] [place] [address] 07/01/2022 SHANTRINIA PREET [facility] [address] [place] [address] 07/02/2022 SHANTRINIA PREET [facility] [address] [place] [address] 07/02/2022 SHANTRINIA PREET [facility] [address] [place] [address] 07/02/2022 SHANTRINIA PREET [facility] [address] [place] [address] 07/04/2022 SHANTRINIA PREET Anxiety F41.9 [facility] [address] [place] [address] 07/11/2022 SHANTRINIA PREET Anxiety F41.9 [facility] [address] [place] [address] 07/11/2022 MIKE YARBROUGH Encounter for screening for infections with a predominantly sexual mode of transmission Z11.3 [facility] [address] [place] [address] 07/12/2022 SHANTRINIA PREET [facility] [address] [place] [address] 07/19/2022 SHANTRINIA PREET Anxiety F41.9 [facility] [address] [facility] [place] [address] 08/01/2022 MIKE YARBROUGH [facility] [address] [place] [address] 08/02/2022 SHANTRINIA PREET Anxiety F41.9 [facility] [address] [place] [address] 08/20/2022 SHANTRINIA PREET Anxiety F41.9 [facility] [address] [place] [address] 09/04/2022 SHANTRINIA PREET Anxiety F41.9 [facility] [address] [place] [address] 09/18/2022 SHANTRINIA PREET Anxiety F41.9 [facility] [address] [place] [address] 11/07/2022 SHANTRINIA PREET Anxiety F41.9 [facility] [address] [facility] [place] [address] 01/23/2023 MIKE YARBROUGH Seasonal allergies J30.2 ; Tattoo reaction L92.3 ; Throat discomfort R07.0 and Mild persistent asthma without complication J45.30 [facility] [address] [facility] [place] [address] 02/27/2023 [facility] [address] [facility] [place] [address] 03/18/2023 [facility] [address] [facility] [place] [address] 04/01/2023 [facility] [address] [place] [address] 04/15/2023 DARLING LACY [facility] [address] [facility] [place] [address] 04/15/2023 DARLING BAMBI Keratosis pilaris L85.8 and Lentigines L81.4 [facility] [address] [facility] [place] [address] 04/28/2023 [facility] [address] [place] [address] 05/22/2023 [facility] [address] [place] [address] 05/23/2023 MIKE YARBROUGH ASSESSMENTS Encounter Date Diagnosis [...] part of this not was created by [employer]. An attempt at proofreading has been [...] shared happiness that client had a good holiday. Clinician inquired about negative symptoms. Clinician [...] as hand washing, wearing mask, using hand director of scientific research. Clinician praised client for already thinking about [...] Insured Coverage Start Date Coverage End Date [employer] [address] [place] [phone] [id number] Lorie Vizcaino Self - patient is the insured [facility] [address] [place] [phone] [id number] Prieto Vizcaino Spouse - patient is the spouse of the insured MEDICAL (GENERAL) HISTORY Medical History History ICD Code asthma anxiety depression ADD Elevated hemoglobin D58.2 Mild persistent asthma with acute exacer bation (resolved 01/23/2023) undefined
[2023-06-24 00:38] LABS: Basophils Absolute Auto 0.04 K/uL (0.00-0.30); Basophils Percent Auto 0.5 % (0.0-3.0); Eosinophils Absolute Auto 0.18 K/uL (0.00-0.50); Eosinophils Percent Auto 2.3 % (0.0-7.0); Hematocrit 45.7 % (33.0-51.0); Immature Granulocytes Abs Auto 0.01 K/uL (0.00-0.30); Immature Granulocytes Pct Auto 0.1 %; Lymphocytes Absolute Auto 2.12 K/uL (0.90-2.90); Lymphocytes Percent Auto 26.9 % (20-44); Mean Corpuscular HGB Conc 35 gm/dL (32-36); Mean Corpuscular Hemoglobin 30 pg (26-34); Mean Corpuscular Volume 87 fL (80-100); Monocytes Percent Auto 5.8 % (0.0-11.0); Neutrophils Absolute Auto 5.06 K/uL (1.7-7.0); Neutrophils Percent Auto 64.4 % (42.0-72.0); Platelet Count* 230 K/uL (140-440); RDW Coefficient of Variation % 11.8 % (11.5-15.5); Red Blood Count 5.27 m/uL (4.00-5.20); White Blood Count* 7.87 K/uL (4.50-11.00)
[2023-06-24 00:43] LABS: Slide Review Reflex No
[2023-06-24 01:00] LABS: Albumin* 4.7 g/dL (3.3-5.0); Chloride* 107 mmol/L (96-114)
[2023-06-24 01:01] LABS: Sodium* 142 mmol/L (135-149)
[2023-06-24 01:03] LABS: Creatinine* 0.7 mg/dL (0.5-1.5); Estimated Glomerular Filt Rate 125 ml/min; Magnesium* 2.3 mg/dL (1.5-2.6)
[2023-06-24 01:04] LABS: Alanine Aminotransferase* 38 U/L (4-35); Alkaline Phosphatase* 44 U/L (40-150); Anion Gap 11 mEq/L (7-15); Aspartate Amino Transferase* 40 U/L (12-35); Bilirubin Total* 0.6 mg/dL (0.1-1.5); Blood Urea Nitrogen* 19 mg/dL (5-24); Calcium* 9.4 mg/dL (8.4-10.6); Carbon Dioxide* 24 mmol/L (20-32); Glucose* 92 mg/dL (60-115); Total Protein* 7.5 g/dL (6.0-8.3)
[2023-06-24 01:07] LABS: C Reactive Protein* < 0.5 mg/dL (0.5-1.0); D Dimer Quantitative* < 0.27 ug/ml (0.00-0.50)
[2023-06-24 01:18] LABS: PCR FLU A Negative PCR FLU A (Negative); PCR FLU B Negative PCR FLU B (Negative); PCR RSV Negative PCR RSV (Negative)
[2023-06-24 01:21] LABS: Vitamin D 25 Hydroxy* 42 ng/mL (30-80)
[2023-06-24 01:29] LABS: SARS PCR* Negative SARS-CoV-2 (Negative)
== END 2023-06-24 01:49 | disposition home or self-care (01) ==
PROVIDERS: Emergency Provider Family Medicine; PCP Family Medicine
DX: M54.89 Other dorsalgia (principal); R06.02 Shortness of breath
CPT/HCPCS: 36415; 71045; 80053; 82306; 83735; 85025; 85379; 86140; 87631; 99284

== ENCOUNTER 2024-04-06 04:03 | Emergency (ER) | payer OTHER, SELFPAY ==
[2024-04-06 04:11] VITALS: BP 112/84; PULSE 84; RESP 18; TEMP 36.9; O2SAT 98; BMI 33.1
[2024-04-06] MEDS: IBUPROFEN 200 MG TABLET 600 MG PO (04:32)
--- NOTE | 2024-04-06 04:33 | ED.GENADULT ---
HPI - General Adult General Chief complaint: Eye Problems Stated complaint: Pain around L eye Time Seen by Provider: 04/06/24 04:15 Source: patient Mode of arrival: ambulatory Limitations: no limitations History of Present Illness HPI narrative: 23-year-old female presents to the emergency department with headache in the left frontal sinus and upper left maxillary sinus area. This has been intermittent for the past 3 weeks. No fever. No trauma or injury. No purulent nasal drainage, no vision change. Reports that she came to the emergency department because her symptoms had been fine when she went to bed but the headache woke her up and she had trouble falling back asleep. She did not try taking any medication for the headache or any sleep aids. No trauma or injury. She was initially evaluated in her clinic, was given prednisone for a few days, this did not relieve her symptoms. She was then prescribed a week of Augmentin. Reports that this did not improve her symptoms. She was then given another short course of prednisone which also did not relieve her symptoms. She reports that she was evaluated by an eye doctor 4 days ago and was told that her exam was normal. She may be experiencing some eye strain from her glasses not quite being the right prescription. No cough, no shortness of breath. No other systemic symptoms. Has not tried any other interventions to help with her symptoms. Past medical history notable for asthma and anxiety. Reports that her home medications are citalopram, Singulair, Advair and albuterol. She also takes vitamin B12 and D3. Related Data Previous Rx's ?Medication ?Instructions ?Recorded celecoxib 200 mg capsule (Celebrex) 200 mg PO BID PRN pain #20 caps 06/09/23 cyclobenzaprine 5 mg tablet 5 - 10 mg (1 - 2 x 5 mg) PO HS PRN 06/09/23 muscle spasm #10 tabs Allergies Allergy/AdvReac Type Severity Reaction Status Date / Time No Known Drug Allergies Allergy Verified 06/09/23 01:50 [facility] Social History Smoking Status: Unknown if ever smoked Do you use any of these nicotine containing products: None Second hand tobacco smoke exposure: No How often do you have a drink containing alcohol: never How often do you have six or more drinks on one occasion: Never AUDIT-C Alcohol total score: 0 Non-prescribed substance use: denies use service: No Exam Const: Vital Signs, click to edit/add: Vital Signs - 24 hr 04/06/24 04:11 Temperature 98.4 F Pulse Rate [Pulse Oximeter] 84 Respiratory Rate 18 Blood Pressure [Ri ght Upper Arm] 112/84 Pulse Oximetry 98 Oxygen Delivery Me thod Room Air Documenting provider has reviewed patient's vital signs: yes Common normals: no apparent distress and alert General appearance: cooperative and well kempt HENMT: Common normals: normocephalic and TM's normal bilaterally Head and scalp: normocephalic Face and sinus: normal facial exam Tympanic membrane: TM's normal bilaterally Mouth: oral and palatal mucosa normal Throat: posterior oropharynx normal Other: Nose with mild clear mucus rhinorrhea, no severe irritation no mucopurulent drainage. No obvious obstructions or polyps. Slight postnasal drip. Eye: Common normals: PERRL, EOMs intact bilaterally, conjunctivae normal, no papilledema and fundi normal bilaterally General eye: normal appearance of both eyes Conjunctiva: conjunctiva(e) normal Pupil: PERRL Direct Ophthalmoscopy: no papilledema and fundi normal bilaterally Neck & C-Spine: Common normals: full ROM, no lymphadenopathy and no meningeal signs General: normal visual inspection Resp: Common normals: normal respiratory effort, no use of accessory muscles and clear to auscultation bilaterally Effort & inspection: able to speak in complete sentences Auscultation: clear to auscultation bilaterally Cardio: Common normals: regular rate, regular rhythm, S1 normal heart sound, S2 normal heart sound and no murmurs Rate: regular rate Rhythm: regular rhythm Heart sounds: S1 normal and S2 normal Neuro: Sensorium/orientation: alert Meningeal signs: no meningeal signs Speech: speech normal Psych: Appearance: well kempt Attitude: engaged Activity/motor behavior: appropriate eye contact Insight: fair Judgement: fair Skin: Common normals: no rashes or lesions noted General skin exam: no rashes or lesions noted Course Course ED Course: Patient presenting with mild sinus congestion, no fever, severe bleeding, signs of head injury or other systemic symptoms. Differential diagnosis including tension headache, eyes strain, sinusitis, dental problem, unseen ocular issue, intracranial issue. No red flags on exam or history. I do not recommend CT to rule out intracranial pathology based on very benign history. Patient will be given ibuprofen 600 mg p.o. x1. Counseled on appropriate use of the emergency department and symptom medication at home. Will take Tylenol 1000 mg every 6 hours and or ibuprofen 600 mg every 6 hours. She is given the number for Ear Nose and Throat provider and encouraged to make an appointment for 2nd opinion. Reassuring eye exam, consider dental visit if not improving. In the interim, she is recommended to take an wdyu-ssh-delgsax antihistamine, and anot-ekf-pyvxcpf nasal steroid spray and perform nasal saline rinses twice daily. I do not recommend additional prednisone or antibiotics at this time. She verbalizes understanding and agreement, see written instructions. Vital Signs Vital signs: Initial Vital Signs Temperature 98.4 F 04/06/24 04:11 Temperature Source Temporal Artery Scan 04/06/24 04:11 Pulse Rate 84 04/06/24 04:11 Respiratory Rate 18 04/06/24 04:11 Blood Pressure 112/84 04/06/24 04:11 Blood Pressure Mean 93 04/06/24 04:11 Blood Pressure Position Sitting 04/06/24 04:11 Pulse Oximetry 98 04/06/24 04:11 Oxygen Delivery Method Room Air 04/06/24 04:11 Vital Signs Temperature 98.4 F 04/06/24 04:11 Pulse Rate 84 04/06/24 04:11 Respiratory Rate 18 04/06/24 04:11 Blood Pressure 112/84 04/06/24 04:11 Pulse Oximetry 98 04/06/24 04:11 Oxygen Delivery Method Room Air 04/06/24 04:11 Temperature 98.4 F 04/06/24 04:11 Pulse Rate 84 04/06/24 04:11 Respiratory Rate 18 04/06/24 04:11 Blood Pressure 112/84 04/06/24 04:11 Pulse Oximetry 98 04/06/24 04:11 Oxygen Delivery Method Room Air 04/06/24 04:11 Medications Administered Medications: Generic Name Dose Route Start Last Admin Trade Name Freq PRN Reason Stop Dose Admin Ibuprofen 600 mg 04/06/24 04:28 04/06/24 04:32 Ibuprofen 200 Mg Tablet PO 04/06/24 04:29 600 mg ONCE ONE Administration Discharge Plan Discharge Clinical Impression: Sinus pressure Patient Disposition: Home, Self-Care Condition: Stable Instructions: Sinusitis (ED) Additional Instructions: I agree with the other providers that your eye and facial pain seem to be more related to sinus congestion. I do not see any signs of a bacterial infection. I do not see any signs of a problem within the eye itself such as glaucoma, detached retina or elevated intra-ocular pressures. This is all reassuring. Sinus congestion can last for up to 6 weeks and does not necessarily benefit from more medications. It is important to know what to do when you get bothersome symptoms. I would recommend you take Tylenol 1000 mg every 6 hours and or ibuprofen 600 mg every 6 hours. For sleep, you may use melatonin 10 mg at bedtime and/or Benadryl 25-50 mg to help you sleep. Often, sinus congestion can be relieved with a combination of hkzm-wsv-iituyjc products just is affectively. I would recommend that you perform nasal saline rinses twice daily. I would like for you to by a couple of bottles of qwbk-hjj-nvgwzvk nasal saline and rinse morning and evening. After urines, I would recommend that you spray fluticasone nasal spray 1 spray per nostril daily to help with inflammation. Would like for you to take an uqci-fgm-gvdrwef antihistamine like Claritin, Jailyn or Zyrtec. Do this for the next 2 weeks. I would like for you to call our ear nose and throat provider, Dr. East and schedule an appointment. It may be a week or 2 before he can get you in for an appointment, so continue these uhor-uvr-elfgfxl treatments as I have discussed in the interim. If your symptoms resolve with the medications, it is okay to cancel that appointment. [phone] You should come to emergency department if you have severe shortness of breath, significant difficulty swallowing, sudden persistent vision changes, persistent high fever over 100.4 or neurological changes associated with your headache. You may return to work and or school with no restrictions. Activity Level: No Restrictions Discharge Diet: Regular Prescriptions: No Action celecoxib [Celebrex] 200 mg capsule 200 mg PO BID PRN (Reason: pain) Qty: 20 0RF cyclobenzaprine 5 mg tablet 5 - 10 mg PO HS PRN (Reason: muscle spasm) Qty: 10 0RF Follow Up/Referrals: Neela Yanez DO [Primary Care Provider] - Orlando East MD [Staff Physician] - (Please call for appointment.) Stand Alone Forms: [employer] Info Instructions
--- OUTSIDE RECORDS SUMMARY | 2024-04-06 04:38 | XMS_ITS | Clinical Summary ---
Author Organization [facility] Address [address] [place] [address]. [place] [address] Care Team Providers Care Manager Finance Name Role Phone Pippa Mott PA-C Primary Care Provi peg Allergies Active Allergy Reactions Criticality Noted Date Comments Seasonal Allergies 04/24/2018 Medications Medication Sig Dispensed Refills Start Date End Date Status clindamycin (CLINDAGEL) 1 % gel Apply topically to affected area QHS 60 g 3 04/22/2016 Active montelukast (SINGULAIR) 5 MG chewable tabletIndications:Pe rsistent asthma Take 2 tablets (10 mg) by mouth At Bedtime Unable to swallow pills 60 tablet 11 05/12/2017 Active albuterol (PROAIR HFA) 108 (90 Base) MCG/ACT InhalerIndications:M oderate persistent asthma without complication Inhale 2 puffs into the lungs every 4 hours as needed for shortness of breath / dyspnea 2 Inhaler 1 01/16/2018 Active amphetamine-dextroam phetamine (ADDERALL XR) 25 MG 24 hr capsuleIndications:A DHD, predominantly inattentive type Take 1 capsule (25 mg) by mouth daily 30 capsule 01/16/2018 Active Additional Information Patient not taking.Reported on 04/24/2018 fluticasone (FLONASE) 50 MCG/ACT sprayIndications:Mod erate persistent asthma without complication [place] 1 spray into both nostrils daily 16 g 3 01/16/2018 Active fluticasone-salmeter ol (ADVAIR HFA) 230-21 MCG/ACT inhalerIndications:M oderate persistent asthma without complication Inhale 1 puff into the lungs daily 6 Inhaler 01/16/2018 Active Additional Information Patient not taking.Reported on 04/24/2018 etonogestrel-ethinyl estradiol (NUVARING) 0.12-0.015 MG/24HR vaginal ringIndications:Enco unter for initial prescription of vaginal ring hormonal contraceptive Insert 1 ring vaginally every 21 days then remove for 1 week then repeat with new ring. 3 each 3 01/16/2018 Active Additional Information Patient not taking.Reported on 04/24/2018 adapalene 0.3 % gelIndications:Acne vulgaris Apply topically At Bedtime 45 g 11 04/24/2018 Active ibuprofen (ADVIL/MOTRIN) 200 MG tablet Take 3 tablets (600 mg) by mouth every 8 hours as needed for mild pain 30 tablet 04/25/2019 Active Active Problems Problem Noted Date Diagnosed Date Obesity without serious estephanie rbidity with body mass index (BMI) in 95th to 98th percentile for age in pediatric patient, unspecified obesity type 01/16/2018 Persistent asthma 06/21/2015 Self-injurious behavior 09/03/2014 Adjustment disorder with mixed anxiety and depre ssed mood 08/29/2014 Acne 10/30/2011 Intermittent asthma 10/25/2010 Overview: Flovent, Singulair as controllers; 02/09, 03/11, 10/11, 06/09, 11/07, 05/09,07/08, 06/07 Prednisone; Diagnosed 2003. Hospitalized X2- 2004,2006 ADHD, predominantly inattentive type Overview: 11/09 Adderall- increase anger, trouble getting her to take it; 12/10 tried Prozac for ODD; 07/12- Adderall -actual start in 09/12; Restart 03/25/13 Immunizations Name Administration Dates Next Due Comvax (HIB/HepB) 05/05/2002,2001,07/01/20 01 DTAP (<7y) 10/27/2002, 2,2001,2000 DTAP-IPV, <7Y (QUADRACEL/KINRIX) 12/29/2006 HEPA 10/30/2011,04/10/2011 HPV 05/20/2014,07/28/2013,03/25/2013 Influenza (H1N1) 08/08/2009,07/05/2009 Influenza (IIV3) PF 06/13/2010, 7,07/02/2006,2003,06/22/2003,07/21/2002,06/21/2002 Influenza Intranasal Vaccine 05/20/2014,07/19/20 11 Influenza Vaccine >6 months,quad, PF 05/12/2017, 06/21/2015 MMR 12/29/2006,05/05/2002 Meningococcal ACWY (Menactra??) 01/16/2018,03/25 Pneumococcal (PCV 7) 07/21/2002,11/19/19 02,2001,2000 Poliovirus, inactivated (IPV) 2001, 002,2001 TDAP Vaccine (Adacel) 03/25/2013 Varicella 12/29/2006,02/02/2002 Family History Medical History Relation Comments Asthma Maternal Grandfather Cancer Maternal Grandfather 2 Melanoma on face Osteoporosis Maternal Grandfather Heart Disease Maternal Grandmother Heart attac k Asthma Mother as a child Heart Disease Mother Tachycardia Musculoskeletal Disorder Mother MS Neurologic Disorder Mother Migraines Osteoporosis Mother OSTEOPENIA Psychotic Disorder Mother Anxiety, Depr ession, ADHD Osteoporosis Paternal Grandfather Relation Status Comments Maternal Grandfather Maternal Grandmother Mother Paternal Grandfather Social History Tobacco Use Types Packs/Day Years Used Date Smoking Tobacco: Never Smokeless Tobacco: Never Tobacco Cessation:Counseling Given: No Alcohol Use Standard Drinks/Week Comments No 0 (1 standard drink = 0.6 oz pur e alcohol) Sex and Gender Information Value Date Recorded Sex Assigned at Not on file Gender Identity Not on file Sexual Orientation Not on file Last Filed Vital Signs Vital Sign Reading Time Taken Comments Blood Pressure 91/68 04/25/2019 6:00 PM CDT Pulse 92 04/25/2019 6:00 PM CDT Temperature 36.5 ??C (97.7 ??F) 04/25/2019 2:48 PM CD T Respiratory Rate 14 04/25/2019 2:48 PM CDT Oxygen Saturation 98% 04/25/2019 6:00 PM CDT Inhaled Oxygen Concentration - - Weight 84.2 kg (185 lb 11.2 oz) 04/24/2018 1:10 PM CDT Height 164.5 cm (5' 4.75) 04/24/2018 1:10 PM CD T Body Mass Index 31.14 04/24/2018 1:10 PM CDT Plan of Treatment Not on file Care Teams Manager Finance Relationship Specialty Start Date End Date Pippa Mott PA-C PCP - General Physician Queen Producer 06/03/17
--- OUTSIDE RECORDS SUMMARY | 2024-04-06 04:38 | XMS_ITS | Referral Summary ---
Author Organization [facility] Address [address] [place] [address]. [place] [address] Care Team Providers Care Blueprinting And Photocopy Supervisor Name Role Phone Pippa Mott PA-C Primary [...] MCG/ACT sprayIndications:Mod erate persistent asthma without complication [place] 1 spray into both nostrils daily 16 [...] 002,2001 TDAP Vaccine (Adacel) 03/25/2013 Varicella 12/29/2006,02/02/2002 Social History Tobacco Use Types Packs/Day Years [...] of Treatment Not on file Care Teams Blueprinting And Photocopy Supervisor Relationship Specialty Start Date End Date Pippa Mott PA-C PCP - General Physician Diamond Powder Mixer 06/03/17
--- OUTSIDE RECORDS SUMMARY | 2024-04-06 04:38 | XMS_ITS | Encounter Summary ---
Author Organization [facility] Address [address] [place] [address]. [place] [address] Care Team Providers Care Freight Team Associate Name Role Phone Pippa Mott PA-C Primary Care Provi peg Pippa Mott PA-C Unavailable [phone] Pippa Mott PA-C Unavailable [phone] Maddie Malcolm Ra SERVICE OPERATIONS MANAGER CHANGE BOOTH ATTENDANT Unavailable + [phone] Pippa Mott PA-C Unavailable [phone] Reason for Visit * Reason Comments Medication Refill clindamycin gel Encounter Details Date Type Department Care Team (Late st Contact Info) Description 03/24/2018 [facility] [address] [place] [address] Maddie Malcolm Ra, SERVICE OPERATIONS MANAGER CHANGE BOOTH ATTENDANT [address] [place], [place] [id number] Medication Refill (clindamycin gel) Social History Tobacco Use Types Packs/Day Years Used Date Smoking Tobacco: Never Smokeless Tobacco: Never Alcohol Use Standard Drinks/Week Comments No 0 (1 standard drink = 0.6 oz pur e alcohol) Sex and Gender Information Value Date Recorded Sex Assigned at Not on file Gender Identity Not on file Sexual Orientation Not on file documented as of this encounter Miscellaneous Notes * Telephone Encounter - Linda Zaragoza - 04/16/2018 2:16 PM CDT Letter sent * Telephone Encounter - Pushpa Quinones - 04/09/2018 3:15 PM CDT 2nd attempt - Left message for patient to schedule appointment. -Pushpa Sun TC * Telephone Encounter - Linda Zaragoza - 03/27/2018 1:14 PM CDT 1st attempt no answer * Telephone Encounter - Pippa Mott PA-C - 03/26/2018 3:49 PM CDT Appt required. * Telephone Encounter - Nena Coffey, RN - 03/26/2018 2:52 PM CDT Clindamycin 1% topical gel Last Written Prescription Date: 04/22/2016 Last Fill Quantity: 60g, # refills: 3 Last office visit: 01/16/2018 with prescribing provider: Acne discussed. Note from last OV: . Acne Problem started: 6 months ago Location: all over face, starting on chest Description: red, round Therapies Tried: Clindamycin helps a little; has stopped taking it Future Office Visit: Please send prescription if approved. Nena Coffey RN documented in this encounter Plan of Treatment Not on file documented as of this encounter Visit Diagnoses Diagnosis Acne vulgaris- Primary Other acne documented in this encounter Care Teams Freight Team Associate Relationship Specialty Start Date End Date Pippa Mott PA-C PCP - General Physician Custodial Manager 06/03/17 Pippa Mott PA-C [address] [facility] [address] PCP - Assigned PCP 06/22/17 11/03/18 Pippa Mott PA-C [address] [facility] [address] Assigned PCP 06/22/17 03/11/20 Maddie Malcolm Ra, SERVICE OPERATIONS MANAGER CHANGE BOOTH ATTENDANT [address] [place] [address] Assigned PCP 03/12/20 05/13/20 Pippa Mott PA-C [address] [facility] [address] Assigned PCP 05/14/20 12/09/20 documented as of this encounter
--- OUTSIDE RECORDS SUMMARY | 2024-04-06 04:38 | XMS_ITS | Encounter Summary ---
Author Organization [facility] Address [address] [place] [address]. [place] [address] Care Team Providers Care Manager Farm Name Role Phone Maddie Malcolm Ra, APRN PELLET PRESS OPERATOR Primary Care Provid er Pippa Mott PA-C Primary Care Provi peg OestrPippa pascual PA-C Unavailable [phone] OestrPippa pascual PA-C Unavailable [phone] Maddie Malcolm Ra, APRN PELLET PRESS OPERATOR Unavailable + [phone] OestrPippa pascual PA-C Unavailable [phone] Reason for Visit * Reason Onset Date Comments MyChart Communication 11/07/2015 Letter for Gym Class Encounter Details Date Type Department Care Team (Late st Contact Info) Description 11/07/2015 [facility] [address] [place] [address] Maddie Malcolm Ra, APRN PELLET PRESS OPERATOR [address] [place] [address] MyChart Communication (Letter for Gym Class) Social History Tobacco Use Types Packs/Day Years [...] encounter Miscellaneous Notes * Telephone Encounter - Maddie Malcolm Ra, APRN CNP - 11/07/2015 9:43 AM COUNTER MANAGER Edwige. LAURA. TER MANAGER * Telephone Encounter - Nancy Garcia RN - 11/07/2015 7:16 AM CST Please review pt's MyChart request regarding a note for gym class. Letter pended. Fabiana Garcia, PINO, BSN TER MANAGER documented in this encounter Plan of Treatment Not on file documented as of this encounter Visit Diagnoses Not on filedocumented in this encounter Care Teams Manager Farm Relationship Specialty Start Date End Date Maddie Malcolm Ra, APRN CNP [address] [place] [address] PCP - General Family Practice 09/28/15 06/02/17 Pippa Mott PA-C [address] [place] [address] PCP - General Physician Hardware Sales Assistant 06/03/17 Pippa Mott PA-C [address] [facility] [address] [place] [address] PCP - Assigned PCP 06/22/17 11/03/18 Pippa Mott PA-C [address] [place] [address] Assigned PCP 06/22/17 03/11/20 Maddie Malcolm Ra, APRN CNP [address] [place] [address] Assigned PCP 03/12/20 05/13/20 Pippa Mott PA-C [address] [place] [address] Assigned PCP 05/14/20 12/09/20 documented as of this encounter
--- OUTSIDE RECORDS SUMMARY | 2024-04-06 04:38 | XMS_ITS | Encounter Summary ---
Author Organization [facility] Address [address] [place] [address]. [place] [address] Care Team Providers Care Medical Detail Representative Name Role Phone Maddie Malcolm Ra, APRN, CNP Primary Care Provid er Pippa Mott PA-C Primary Care Provi peg Pippa Mott PA-C Unavailable [phone] Pippa Mott PA-C Unavailable [phone] Maddie Malcolm Ra, APRN, CNP Unavailable + [phone] Pippa Mott PA-C Unavailable [phone] Reason for Visit * Reason Comments Medication Refill fluticasone-salmeter ol (ADVAIR-HFA) 230-21 MCG/ACT inhaler Encounter Details Date Type Department Care Team (Late st Contact Info) Description 01/28/2017 [facility] [id number] [place] [address] Maddie Malcolm Ra, APRN MANAGER INSTALLATION [address] [place] [address] Medication Refill (fluticasone-salmeterol (ADVAIR-HFA) 230-21 MCG/ACT inhaler) Social History Tobacco Use Types Packs/Day Years [...] * Telephone Encounter - Linda Zaragoza - 02/10/2017 9:53 AM CDT 2nd attempt lmsg to call back for appt * Telephone Encounter - Linda Zaragoza - 02/03/2017 1:47 PM CDT 1st attempt lmsg for pt to call back and make an appt * Telephone Encounter - Maddie Malcolm Ra, APRN CNP - 01/31/2017 4:20 PM CDT Refilled. Needs visit. Also, please repeat ACT. LAURA * Telephone Encounter - Laura Gr RN - 01/31/2017 9:29 AM CDT Routing refill request to provider for review/approval because: ACT,20, due for asthma recheck. Please sign if ok. Routing to station as well, please call parent to schedule. Laura Gr RN Triage Nurse * Telephone Encounter - Iman Elizondo - 01/28/2017 3:39 PM CDT fluticasone-salmeterol (ADVAIR-HFA) 230-21 MCG/ACT inhaler Last Written Prescription Date: 08/29/16 Last Fill Quantity: 1, # refills: 3 Last Office Visit with [facility] or [facility] prescribing provider: 04/22/16 Future Office Visit: Date of Last Asthma Action Plan Letter: Asthma Action Plan Q1 Year Topic Date Due ??? Asthma Action Plan - yearly 06/21/2016 Asthma Control Test: ACT Total Scores 07/05/2016 ACT TOTAL SCORE (Goal Greater than or Equal to 20) 18 In the past 12 months, how many times did you visit the emergency room for your asthma without being admitted to the hospital? 0 In the past 12 months, how many times were you hospitalized overnight because of your asthma? 0 Date of Last Spirometry Test: No results found for this or any previous visit. documented in this encounter Plan of Treatment Not on file documented as of this encounter Visit Diagnoses Diagnosis Persistent asthma Unspecified asthma documented in this encounter Care Teams Medical Detail Representative Relationship Specialty Start Date End Date Maddie Malcolm Ra, AKILAH MANAGER INSTALLATION [address] [place] [address] PCP - General Family Practice 09/28/15 06/02/17 Pippa Mott PA-C [address] [address] [facility] [address] PCP - General Physician Dry Heat Room Attendant 06/03/17 Pippa Mott PA-C [address] [facility] [address] [place] [address] PCP - Assigned PCP 06/22/17 11/03/18 Pippa Mott PA-C [address] [place] [address] Assigned PCP 06/22/17 03/11/20 Maddie Malcolm Ra, APRN MANAGER INSTALLATION [address] [address] [facility] [place] [address] Assigned PCP 03/12/20 05/13/20 Pippa Mott PA-C [address] [place] [address] Assigned PCP 05/14/20 12/09/20 documented as of this encounter
--- OUTSIDE RECORDS SUMMARY | 2024-04-06 04:38 | XMS_ITS | Clinical Summary ---
Author Organization [facility] Address [address] [address] Care Team Providers Care Hogshead Stock Clerk Name Role Phone Unavailable Primary Care Provider Unavailabl e Source Comments You are receiving this document as you are listed as the primary care provider,follow-up provider, or the patient has been referred to you for consultation.This is in compliance with the Medicare and[facility] EHR Incentive Program,which states Providers who transition their patient to another setting of careor provider of care or refers their patient to another provider of care shouldprovide summary care record for each transition of care or referral. [facility] Allergies No known active allergies Medications Medication Sig Dispensed Refills Start Date End Date Status Montelukast Sodium (SINGULAIR OR) Active ALBUTEROL IN Active Fluticasone Propionate, Inhal, (FLOVENT IN) Active cyclobenzaprine (FLEXERIL) 10 MG tabletIndications:M uscle strain of chest wall, initial encounter Take 1 Tablet by mouth three times a day as needed for Muscle Spasms. 30 Tablet 07/11/2018 Active Additional Information Patient not taking.Reported on 10/24/2023 ADVAIR HFA 230-21 MCG/ACT inhaler 03/18/2020 Active clindamycin (CLEOCIN T) 1 % external solution APPLY LIBERALLY TOP TWICE A DAY DIRECTED APPLY TO CLEAN SKIN. USE ON THIGHS 03/18/2020 Active citalopram (CELEXA) 10 MG tablet Take 1 Tablet (10 mg) by mouth daily. 05/26/2023 Active Active Problems Problem Noted Date Diagnosed Date Asthma 03/10/2011 Social History Tobacco Use Types Packs/Day Years Used Date Smoking Tobacco: Never Smokeless Tobacco: Never Alcohol Use Standard Drinks/Week Comments Never 0 (1 standard drink = 0.6 oz pur e alcohol) AUDIT-C Answer Date Recorded Q1: How often do you have a drink containing alc ohol? Never 04/09/2020 Average Number of Drinks Not on file 020 Frequency of Binge Drinking Not on file 05/2020 Sex and Gender Information Value Date Recorded Sex Assigned at Not on file Gender Identity Not on file Sexual Orientation Not on file Last Filed Vital Signs Vital Sign Reading Time Taken Comments Blood Pressure 116/73 10/24/2023 3:44 PM TRUCK GUARD Pulse 95 10/24/2023 3:44 PM TRUCK GUARD Temperature 37.2 ??C (98.9 ??F) 10/24/2023 3:44 PM CS T Respiratory Rate 16 10/24/2023 3:44 PM TRUCK GUARD Oxygen Saturation 99% 10/24/2023 3:44 PM TRUCK GUARD Inhaled Oxygen Concentration - - Weight 86.2 kg (190 lb) 07/11/2018 10:22 AM TRUCK GUARD Height 162.6 cm (5' 4) 07/11/2018 10:22 AM TRUCK GUARD Body Mass Index 32.61 07/11/2018 10:22 AM TRUCK GUARD Plan of Treatment Health Maintenance Due Date Last Done Comments Cervical Cancer Screening Due 2001 Hep C Screening (Preventive Services) 2001 Asthma ACT 2005 Adult Preventive Visit 2019 HepB (1) 2020 COVID-19 Vaccine (1 - 2022-2 4 season) 2023 Chlamydia 02/29/2024 02/28/2023, 02/28/2023 Influenza (#1) 2024 05/15/2023, 06/02, 08/30/2021, Additional history exists DTaP/Tdap/Td (8 - Tdap) 02/28/2033 02/29/20 23, 03/25/2013, 12/29/2006, Additional history exists Zoster/Shingles (1 of 2) 2051 Hib Completed 05/05/2002, 05/2002, 2001 IPV (Polio) Completed 12/29/2006, 10/31, 2001, Additional history exists HepA Completed 10/30/2011, 04/10/2011 HPV Vaccine Completed 05/20/2014, 05/02, 07/28/2013, Additional history exists MCV4 Completed 01/16/2018, 03/25/2013 HIV Screening (Preventive Services) Completed 10/17/2020 Pneumococcal Completed 02/28/2023, 08/03, 07/21/2002, Additional history exists Procedures Procedure Name Priority Date/Time Associated Diagnosis Comments CHLAMYDIA AND GC (EXTERNAL RESULT) Routine 02/28/2023 10:30 AM CDT from Last 3 Months or Most Recently Relevant to Health Maintenance
--- OUTSIDE RECORDS SUMMARY | 2024-04-06 04:38 | XMS_ITS | Encounter Summary ---
Author Organization [facility] Address [address] [place] [address]. [place] [address] Care Team Providers Care Purchasing And Claims Supervisor Name Role Phone Maddie Malcolm Ra, APRN, CNP Primary Care Provid er Pippa Mott PA-C Primary Care Provi peg Pippa Mott PA-C Unavailable [phone] Pippa Mott PA-C Unavailable [phone] Maddie Malcolm Ra, APRN OXIDIZED FINISH PLATER Unavailable + [phone] OestrPippa pascual PA-C Unavailable [phone] Reason for Visit * Reason Comments Medication Refill ADVAIR HFA 230-21 MC G/ACT inhaler Encounter Details Date Type Department Care Team (Late st Contact Info) Description [facility] [address] [place] [address] Maddie Malcolm Ra, APRN OXIDIZED FINISH PLATER [address] [place] [address] Medication Refill (ADVAIR HFA 230-21 MCG/ACT inhaler) Social History Tobacco Use [...] encounter Miscellaneous Notes * Telephone Encounter - Pushpa Quinones - 03/26/2017 10:06 AM CDT [facility] message sent to schedule an appointment. -Pushpa Quinones Core Oven Tender * Telephone Encounter - Linda Zaragoza - 03/18/2017 11:47 AM CDT 2nd attempt lmsg for pt to call and make appt * Telephone Encounter - Maddie Malcolm Ra, APRN CNP - 03/14/2017 2:52 PM CDT Refilled. Needs follow up visit. LAURA * Telephone Encounter - Sosa Wilde RN - 03/14/2017 2:48 PM CDT Routing refill request to provider for review/approval because: Karyn given x1 and patient did not follow up, please advise-attempts to reach patient with last refill were unsuccessful Violet Wilde, RN * Telephone Encounter - Iman Elizondo - 03/14/2017 2:06 PM CDT ADVAIR HFA 230-21 MCG/ACT inhaler Last Written Prescription Date: 01/31/17 Last Fill Quantity: 1, # refills: 0 Last Office Visit with G, P or [facility] prescribing provider: 04/22/16 Future Office Visit: Date [...] asthma documented in this encounter Care Teams Purchasing And Claims Supervisor Relationship Specialty Start Date End Date Maddie Malcolm Ra, INTERNATIONAL SPECIALIST OXIDIZED FINISH PLATER [address] [place] [address] PCP - General Family Practice 09/28/15 06/02/17 Pippa Mott PA-C [address] [place] [address] PCP - General Physician Distribution Clerk 06/03/17 Pippa Mott PA-C [address] [facility] [place] [address] PCP - Assigned PCP 06/22/17 11/03/18 Pippa Mott PA-C [address] [facility] [place] [address] Assigned PCP 06/22/17 03/11/20 Maddie Malcolm Ra, AKILAH OXIDIZED FINISH PLATER [address] [place] [address] Assigned PCP 03/12/20 05/13/20 Pippa Mott PA-C [address] [facility] [place] [address] Assigned PCP 05/14/20 12/09/20 documented as of this encounter
--- OUTSIDE RECORDS SUMMARY | 2024-04-06 04:38 | XMS_ITS | Encounter Summary ---
Author Organization [facility] Address [address] [place] [address] Care Team Providers Care Professor Of Visual Arts Name Role Phone Maddie Malcolm Ra, APRN, CNP Primary Care Provid er Pippa Mott PA-C Primary Care Provi peg OestrPippa pascual PA-C Unavailable [phone] OestrPippa pascual PA-C Unavailable [phone] Maddie Malcolm Ra, APRN, CNP Unavailable + [phone] OestrPippa pascual PA-C Unavailable [phone] Reason for Visit * Reason Onset Date Comments Refill Request 09/28/2015 prednisoLONE (OR APRED/PRELONE) 15 MG/5ML solution Refill Request 09/28/2015 albuterol (ALBUT LIZZ) 108 (90 BASE) MCG/ACT inhaler Encounter Details Date Type Department Care Team (Late st Contact Info) Description 09/28/[address] [address] Marie Lucero MD Refill Request (prednisoLONE (ORAPRED/PRELONE) 15 MG/5ML solution); Refill Request (albuterol (ALBUTEROL) 108 (90 BASE) MCG/ACT inhaler) Social History Tobacco Use Types [...] - Maddie Malcolm Ra, APRN CNP - 09/29/2015 4:06 PM DAIRY LABORATORY TECHNICIAN We just discussed this at the visit. No need currently and she was going to see allergy for follow up. LAURA Y LABORATORY TECHNICIAN * Telephone Encounter - Nena Coffey RN - 09/29/2015 3:05 PM CST Seen 09/28/2015 by LAURA. Prelone not on list. Sig not on prescription listed as historical. Sent fax to [facility] to transfer prescription albuterol from [facility] pharmacy. Nena Coffey RN Y LABORATORY TECHNICIAN * Telephone Encounter - MikhailIman - 09/28/2015 4:01 PM CST prednisoLONE (ORAPRED/PRELONE) 15 MG/5ML solution Last Written Prescription Date: 08/16/15 Last Fill Quantity: 100mL, # refills: 0 Last Office Visit with [facility] primary care provider: 09/28/14 albuterol (ALBUTEROL) 108 (90 BASE) MCG/ACT inhaler Last Written Prescription Date: 06/21/15 Last Fill Quantity: 2, # refills: 1 Last Office Visit with [facility] primary care provider): 09/28/14 Future Office Visit: Date of Last Asthma Action Plan Letter: Asthma Action Plan Q1 Year Topic Date Due ??? Asthma Action Plan - yearly 06/21/2016 Asthma Control Test: ACT Total Scores 09/26/2015 ACT TOTAL SCORE - ASTHMA ER VISITS - ASTHMA HOSPITALIZATIONS - ACT TOTAL SCORE (Goal Greater than or Equal to 20) 13 In the past 12 months, how many times did you visit the emergency room for your asthma without being admitted to the hospital? 0 In the past 12 months, how many times were you hospitalized overnight because of your asthma? 0 Date of Last Spirometry Test: No results found for this or any previous visit. Y LABORATORY TECHNICIAN documented in this encounter Plan of Treatment Not on file documented as of this encounter Visit Diagnoses Not on filedocumented in this encounter Care Teams Professor Of Visual Arts Relationship Specialty Start Date End Date Maddie Malcolm Ra, SITE COORDINATOR CULLED FRUIT PACKER [address] [place] [address] PCP - General Family Practice 09/28/15 06/02/17 Pippa Mott PA-C [address] [place] [address] PCP - General Physician Plumber Helper 06/03/17 Pippa Mott PA-C [address] [place] [place] [address] PCP - Assigned PCP 06/22/17 11/03/18 Pippa Mott PA-C [address] [place] [address] Assigned PCP 06/22/17 03/11/20 Maddie Malcolm Ra, SITE COORDINATOR CULLED FRUIT PACKER [address] [place] [address] Assigned PCP 03/12/20 05/13/20 Pippa Mott PA-C [address] [place] [address] Assigned PCP 05/14/20 12/09/20 documented as of this encounter
--- OUTSIDE RECORDS SUMMARY | 2024-04-06 04:38 | XMS_ITS | Encounter Summary ---
Author Organization [facility] Address [address] [place] [address]. [place] [address] Care Team Providers Care Career Based Intervention Coordinator Name Role Phone Marie Lucero MD Primary Care Provider Unavailable Maddie Malcolm Ra, APRN PLANNER Primary Care Provid er OestrPippa pascual PA-C Primary Care Provi peg Oestrankur, Pippa Jensen PA-C Unavailable [phone] Oestrankur, Pippa Jensen PA-C Unavailable [phone] Maddie Malcolm Ra, APRN PLANNER Unavailable + [phone] OestrPippa pascual PA-C Unavailable [phone] Reason for Visit * Reason Onset Date Comments Refill Request 04/07/2014 albuterol Encounter Details Date Type Department Care Team (Late st Contact Info) Description 04/07/2014 MyC Refill [address] [phone] Suzy Guerrero PA-C [address] [address] [place] [id number] Refill Request (albuterol) Social History Tobacco Use Types Packs/Day Years [...] encounter Miscellaneous Notes * Telephone Encounter - Frederick Ryan RN - 04/08/2014 7:02 AM CDT Forwarded to PCP. * Telephone Encounter - Frederick Ryan RN - 04/08/2014 7:01 AM CDT[facility] Original authorizing provider: Suzy Guerrero PA-C, VAISHALI Hope would like a refill of the following medications: albuterol (ALBUTEROL) 108 (90 BASE) MCG/ACT inhaler [AUTUMN Lloyd, VAISHALI] Preferred pharmacy: [id number] [place], [place] - [address] [address] Comment: This message is being sent by Johanne Hope on behalf of Lorie Hope Medication renewals requested in this message routed to other providers: adapalene (DIFFERIN) 0.1 % gel [Marie Valdes MD] clindamycin (CLINDAGEL) 1 % gel [Marie Valdes MD] montelukast (SINGULAIR) 5 MG chewable tablet [Marie Valdes MD] amphetamine-dextroamphetamine (ADDERALL XR) 25 MG 24 hr capsule [Marie Valdes MD] documented in this encounter Plan of Treatment Not on file documented as of this encounter Visit Diagnoses Diagnosis Intermittent asthma Unspecified asthma documented in this encounter Care Teams Career Based Intervention Coordinator Relationship Specialty Start Date End Date Marie Lucero MD PCP - General Pediatrics 07/19/11 09/27/15 Maddie Malcolm Ra, LABORATORY ASSOCIATE PLANNER [address] [place] [address] PCP - General Family Practice 09/28/15 06/02/17 Pippa Mott PA-C [address] [place] [address] PCP - General Physician On Site Soil Evaluator 06/03/17 Pippa Mott PA-C [address] [facility] [place] [address] PCP - Assigned PCP 06/22/17 11/03/18 Pippa Mott PA-C [address] [facility] [place] [address] Assigned PCP 06/22/17 03/11/20 Maddie Malcolm Ra, LABORATORY ASSOCIATE PLANNER [address] [place] [address] Assigned PCP 03/12/20 05/13/20 Pippa Mott PA-C [address] [facility] [address] Assigned PCP 05/14/20 12/09/20 documented as of this encounter
--- OUTSIDE RECORDS SUMMARY | 2024-04-06 04:38 | XMS_ITS | Encounter Summary ---
Author Organization [facility] Address [address] [place] [address]. [place] [address] Care Team Providers Care Learning Strategist Name Role Phone Maddie Malcolm Ra, APRN, CNP Primary Care Provid er Pippa Mott PA-C Primary Care Provi peg OestrPippa pascual PA-C Unavailable [phone] OestrPippa pascual PA-C Unavailable [phone] Maddie Malcolm Ra, APRN, CNP Unavailable + [phone] OestrPippa pascual PA-C Unavailable +[phone] Encounter Details Date Type Department Care Team (Late st Contact Info) Description 03/26/[address] [facility] [id number] [place] [address] Pushpa Quinones Social History Tobacco Use Types Packs/Day Years Used Date Smoking Tobacco: Never Smokeless Tobacco: Never Alcohol Use Standard Drinks/Week Comments No 0 (1 standard drink = 0.6 oz pur e alcohol) Sex and Gender Information Value Date Recorded Sex Assigned at Not on file Gender Identity Not on file Sexual Orientation Not on file documented as of this encounter Plan of Treatment Not on file documented as of this encounter Visit Diagnoses Not on filedocumented in this encounter Care Teams Learning Strategist Relationship Specialty Start Date End Date Maddie Malcolm Ra, APRN CNP [address] [place] [address] PCP - General Family Practice 09/28/15 06/02/17 Pippa Mott PA-C [address] [place] [address] PCP - General Physician Prototype Sewer 06/03/17 Pippa Mott PA-C [address] [place] [address] PCP - Assigned PCP 06/22/17 11/03/18 Pippa Mott PA-C [address] [place] [address] Assigned PCP 06/22/17 03/11/20 Maddie Malcolm Ra, RAILROAD DINING CAR STEWARDESS PLUMBING INSTRUCTOR [address] [address] [place], [place] [address] Assigned PCP 03/12/20 05/13/20 Pippa Mott PA-C [address] [place] [address] Assigned PCP 05/14/20 12/09/20 documented as of this encounter
--- OUTSIDE RECORDS SUMMARY | 2024-04-06 04:39 | XMS_ITS | Clinical Summary ---
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 60 mL 1 07/12/2020 Active hydrOXYzine pamoate (VISTARIL) 25 mg capsuleIndication s:Panic attack TAKE 1 CAPSULE (25 MG) BY MOUTH 3 TIMES DAILY IF NEEDED FOR ANXIETY. 90 Capsule 03/12/2022 Active triamcinolone (ARISTOCORT; KENALOG) 0.1 % creamIndications: Atopic dermatitis, unspecified type Apply topically to affected area(s) two times daily. Up to 2 weeks for eczema flare. 80 g 02/28/2023 Active cholecalciferol, Vitamin D3, (Vitamin D-3) 5,000 unit tab tabletIndications :Vitamin D deficiency Take 1 Tablet (5,000 units) by mouth once daily. 90 Tablet 1 04/30/2023 Active LORazepam (ATIVAN) 0.5 mg tabIndications:Pa amada attack Take 1 Tablet (0.5 mg) by mouth once daily if needed for Anxiety. 15 Tablet 06/20/2023 Active cyanocobalamin (VITAMIN B12) 1,000 mcg tabletIndications :B12 deficiency TAKE 1 TABLET (1,000 MCG) BY MOUTH ONCE DAILY. 90 Tablet 3 06/23/2023 Active citalopram (CELEXA) 20 mg tabletIndications :Generalized anxiety disorder TAKE 1 TABLET BY MOUTH EVERY MORNING 90 Tablet 1 01/14/2024 Active fluticasone propion-salmetero L (Advair HFA) 230-21 mcg/actuation inhalerIndication s:Mild persistent asthma, unspecified whether complicated Inhale 2 Puffs by mouth two times daily. 3 Each 3 02/05/2024 Active albuterol HFA (PRO-AIR; VENTOLIN; PROVENTIL) 90 mcg/actuation inhalerIndication s:Mild persistent asthma, unspecified whether complicated Inhale 2 Puffs by mouth every 4 hours if needed for Shortness Of Breath (cough). 1 Each 6 02/05/2024 Active fluticasone (50 mcg per actuation) nasal solution (FLONASE)Indicati ons:Seasonal allergic rhinitis due to pollen SPRAY 1 SPRAY INTO EACH NOSTRIL ONCE DAILY 48 mL 6 02/05/2024 Active montelukast (SINGULAIR) 10 mg tabletIndications :Mild persistent asthma, unspecified whether complicated Take 1 Tablet (10 mg) by mouth once daily. 90 Tablet 3 02/05/2024 Active olopatadine (PATADAY) 0.2 % ophthalmic solutionIndicatio ns:Seasonal allergic rhinitis due to pollen Place 1 Drop into both eyes once daily. Use for eye allergy symptoms. Use Maximum of once daily. 5 mL 11 02/05/2024 Active clobetasol (TEMOVATE) 0.05 % ointment PLEASE SEE ATTACHED FOR DETAILED DIRECTIONS 03/05/2024 Active tiZANidine (ZANAFLEX) 2 mg tabletIndications :History of TMJ syndrome,Muscle tightness,Neck pain Take 1 tablet at bedtime as needed for muscle tightness 30 Tablet 03/25/2024 Active methylPREDNISolon e (Medrol, Getachew,) 4 mg tabletIndications :Sinus pressure,Tension headache,Muscle tightness Take by mouth as instructed per packaging. 21 Tablet 03/08/2024 4 Discontinued (*Med complete/Reg imen complete/Lev el of care change) amoxicillin-clavu lanate 875-125 mg tablet (AUGMENTIN)Indica tions:Sinus pressure,Rhinosin usitis Take 1 Tablet by mouth two times daily with meals for 7 days. 14 Tablet 03/17/2024 4 predniSONE (DELTASONE) 20 mg tabletIndications :Neck pain,Muscle tightness Take 2 Tablets (40 mg) by mouth once daily for 5 days. 10 Tablet 03/30/2024 4 Active Problems Problem Noted Date Diagnosed Date Family history of MS (multiple sclerosis) 2023 Pap smear for cervical cancer screening 08/07/20 23 Overview: 07/2023 NIL Plan: Pap/HPV due 07/2026 Mild obstructive sleep apnea 07/02/2023 Overview: Sleep study 06/2023 Orthostatic hypotension 04/28/2023 MAYNARD (nonalcoholic steatohepatitis) 03/01/2023 Hepatic steatosis 02/11/2022 Low HDL (under 40) 09/04/2021 Elevated LFTs 09/04/2021 Seasonal allergic rhinitis due to pollen 021 Morbid obesity with BMI of 40.0-44.9, adult 08/03 Generalized anxiety disorder with panic attacks 08/30/2021 ADHD, predominantly inattentive type 10/20/2018 Overview: 11/09 Adderall- increase anger, trouble getting her to take it; 12/10 tried Prozac for ODD; 07/12- Adderall -actual start in 09/12; Restart 03/25/13 Generalized anxiety disorder 10/20/2018 Overview: Apr 2020: doubled sertraline (Zoloft). Depression 10/20/2018 Overview: Apr 2020: doubled sertraline (Zoloft). Mild persistent asthma 10/20/2018 Adjustment disorder with mixed anxiety and depre ssed mood 08/29/2014 Resolved Problems Problem Noted Date Diagnosed Date Resolved Date Low ceruloplasmin level 04/28/2023 02/0 05/2024 Infectious mononucleosis 08/12/201106/2019 Overview: 10/2010--blood work done at [facility], per mom's report. Positive for mono. Encounters Date Type Department Care Team Description 03/30/2024 8:20 AM CDT Office Visit [facility] [address] [place] [address] Rachel Lozano PA Neck Pain/problem 03/30/2024 Travel 03/25/2024 9:10 AM CDT Office Visit [facility] [address] [place] [address] Neela Yanez DO OMT (Neck and Jaw pain) 03/25/2024 Travel 03/17/2024 10:00 AM CDT Office Visit [facility] [address] [place] [address] Neela Yanez DO Follow Up; Headache; Neck Pain/problem 03/17/2024 Travel 03/12/2024 Telephone [facility] [address] [place] [address] Neela Yanez DO Follow Up 03/08/2024 10:50 AM CDT Office Visit [facility] [address] [place] [address] Neela Yanez DO Concerns (x5 days lower neck, shoulder, middle back pain, LT face pressure ) 03/08/2024 Travel 02/05/2024 9:10 AM CDT Office Visit [facility] [address] [place] [address] Neela Yanez DO Numbness (Numbness and tingling in right hand and foot. Ongoing issue but started again yesterday) 02/05/2024 Telephone [facility] [place] [address] [address] Jacob Kemp MD neuro referral 02/05/2024 Travel 01/13/2024 Refill [facility] [address] [place] [address] Neela Yanez DO Refill Request (Citalopram) from Last 3 Months Immunizations Name Administration Dates Next Due DTaP 10/27/2002, 2,2001,07/01 DTaP-IPV (Kinrix) 12/29/2006 HIB-HepB (Comvax) 05/05/2002,2001,07/01/20 Hepatitis A (Peds) 10/30/2011,04/10/2011 Human Papilloma Virus Vaccin e, Unspecified 05/20/2014,07/28/2013,03/25/2013 Inactivated Polio Vaccine 2001,2001, 2001 Influenza A (H1N1), Inactiva jenniffer (Age >=3 Years) 08/08/2009,07/05/2009 Influenza Virus, Unspecified 07/02/2006 Influenza, IIV3 (Age 6-35 mos) 07/21/2002,2001 Influenza, IIV4 05/15/2023,,08/30/2021,08/14,06/11/2018,05/12/2017,06/21/2015 MMR 12/29/2006,05/05/2002 Meningococcal Vaccine (Menactra) 01/16/2018 Meningococcal Vaccine (Menveo) 03/25/2013 Pneumococcal Conj 20-valent (Prevnar 20) 02/28/2023 Pneumococcal Poly,23-Valent (Pneumovax) 08/30/2021 Pneumococcal conj 7-Valent (Prevnar 7) 1 2001,2001,2001,07/01 Tdap 02/28/2023 Tdap, Unspecified 03/25/2013 Varicella Vaccine 12/29/2006,05/05/2002 Family History Medical History Relation Name Comments Asthma Maternal Grandfather Asthma Mother Relation Name Status Comments Father Alive Maternal Grandfather Mother Alive Social History Tobacco Use Types Packs/Day Years Used Date Smoking Tobacco: Never Passive Smoke Exposure: Never Smokeless Tobacco: Never Tobacco Cessation:Counseling Given: No Alcohol Use Standard Drinks/Week Comments No 0 (1 standard drink = 0.6 oz pur e alcohol) PHQ-2 Answer Date Recorded PHQ-2 TOTAL SCORE 0 07/28/2023 Social Connections Answer Date Recorded Frequency of Communication with Friends and Fami ly 0 03/08/2024 Financial Resource Strain Answer Date R ecorded Difficulty of Paying Living Expenses 3 03/08/2024 Difficulty of Paying Living Expenses Not on file 03/08/2024 Food Insecurity Answer Date Recorded Worried About Running Out of Food in the Last Ye ar 1 03/08/2024 Transportation Needs Answer Date Record ed Lack of Transportation (Medical) 1 03/08/2024 Housing Stability Answer Date Recorded Unable to Pay for Housing in the Last Year 1 03/08/2024 Sex and Gender Information Value Date Recorded Sex Assigned at Not on file Gender Identity Not on file Sexual Orientation Not on file Obstetrics History Last Filed Vital Signs Vital Sign Reading Time Taken Comments Blood Pressure 102/68 03/30/2024 8:25 AM CDT Pulse 87 03/30/2024 8:25 AM CDT Temperature 37 ??C (98.6 ??F) 07/12/2020 10:17 AM CORRECTIONAL SERGEANT Respiratory Rate 15 11/17/2020 11:49 AM CDT Oxygen Saturation 99% 03/30/2024 8:25 AM CDT Inhaled Oxygen Concentration - - Weight 87 kg (191 lb 14.4 oz) 03/30/2024 8:25 AM CDT Height 164.5 cm (5' 4.76) 03/08/2024 10:52 AM C DT Body Mass Index 32.17 03/08/2024 10:52 AM CDT Plan of Treatment Upcoming Encounters Date Type Department Care Team (Late st Contact Info) Description 04/21/2024 9:00 AM CDT Office Visit [facility] [place] [facility] [address] [place] [address] Jacob Kemp MD [address] [place] [address] 04/28/2024 9:30 AM CDT Telemedicine [facility] [address] [facility] [address] [place] [address] Jo Ann Ramachandran, CECY [address] [place] [address] Health Maintenance Due Date Last Done Comments Influenza for age 9-49 05/02/2024 , 06/20/2022, 08/30/2021, Additional history exists Depression screening for age 12+ 07/31/2024 07/31/2023, 07/28/2023, 07/14/2023, Additional history exists Chlamydia for age 16-24 11/10/2024 11/11/19 24, 02/28/2023, 09/13/2020, Additional history exists BMI (ht and wt on same day) for age 18+ 03/08/2025 03/08/2024, 11/11/2023, 10/29/2023, Additional history exists Pap test for age 21-65 07/28/2026 07/28/2023 COVID-19 vaccine series ( season) 2029 Postponed from 05/02/2023 (Patient discretion) Tetanus booster 02/28/2033 02/28/2023, 03/25/2013 HPV series for age 9-26 Completed 05/20/20 14, 07/28/2013, 03/25/2013 HIV for age 15-65 Completed 10/17/2020 Hepatitis C screening for age 18-79 Completed 09/03/2021 Pneumococcal series for age 6-64 Completed 02/28/2023, 08/30/2021, 07/21/2002, Additional history exists Tdap Completed 02/28/2023, 03/25/2013 Procedures Procedure Name Priority Date/Time Associated Diagnosis Comments TSH WITH REFLEX Routine 03/30/2024 8:44 AM CDT Neck pain GC CHLAMYDIA TRACH PROBE Routine 11/11/2023 2:36 PM CDT Urinary problem in female CHEESE PRODUCTION SUPERVISOR THIN PREP PAP SCREEN IMAGED Routine 07/28/2023 9:21 AM CORRECTIONAL SERGEANT Screening for cervical cancer ANTI HCV Routine 09/03/2021 9:45 AM CORRECTIONAL SERGEANT Elevated LFTs ANTI HIV 1/2 Routine 10/17/2020 12:55 PM CORRECTIONAL SERGEANT Screening for HIV (human immunodeficiency virus) from Last 3 Months or Most Recently Relevant to Health Maintenance Results * TSH WITH REFLEX (03/30/2024 8:44 AM CDT) TSH 1.15 0.27 - 4.20 uIU/mL 03/30/2024 5:03 PM CDT [facility] Blood BLOOD SPECIMEN / Unknown Venipuncture / Unknown 03/30/2024 8:44 AM CDT 03/30/2024 8:44 AM CDT Narrative [facility] - 03/30/2024 5:03 PM CDT In Adults, TSH values between 5.00 and 10.00 uIU/ml do not necessarily indicate the presence of Hypothyroidism. Correlation with clinical findings such as presence of goiter and/or Thyroperoxidase (TPO) Antibody may be helpful. For more information please refer to [place] 2004; 291: 228-238. Rachel FERREIRA CHEMISTRY Performing Organization Address City/[facility]/ZIP Co de Phone Number [facility] [address] [place] [address], * GC CHLAMYDIA TRACH PROBE (11/11/2023 2:36 PM CDT) Pathologist [facility] CHLAMYDIA PROBE Negative 2:21 AM CDT [facility] N GONORRHOEAE PROBE Negative 11/12/2023 2:21 AM CDT [facility] Other VAGINAL SWAB / Unknown Non-Blood / Unknown 11/11/2023 2:36 PM CDT 11/11/2023 4:08 PM CDT Iman Bender MD [facility]CRO[facility]OLOGY [facility] [address] [place] [address], * CHEESE PRODUCTION SUPERVISOR THIN PREP PAP SCREEN IMAGED [[id number]] (07/28/2023 9:21 AM CORRECTIONAL SERGEANT) Case Report Gynecologic Cytology Report ? Case: [id number] ? Authorizing Provider: ??Neela Yanez, ? Collected: ? 07/28/2023 0921 ? Ordering Location: ? [facility] [place] ?? Received: ?07/28/2023 1004 ? Clinic ? First Screen: ?Antonio Steiner ? Specimen: ?CHEESE PRODUCTION SUPERVISOR ThinPrep Vial Screening, Cervical ? 08/06/2023 9:11 AM CORRECTIONAL SERGEANT [facility]AT[facility]-C ENTRAL LABORATORY INTERPRETATION/ RESULT NEGATIVE FOR INTRAEPITHELIAL LESION OR MALIGNANCY (NIL) (none) 08/06/2023 9:11 AM [facility]-C ENTRAL LABORATORY IMEN ADEQUACY Satisfactory for evaluation No endocervical component seen 08/06/2023 9:11 AM CORRECTIONAL SERGEANT [facility] LABORAT[facility]-C ENTRAL LABORATORY Date of LMP 07/13/2023 08/06/2023 9:11 AM CORRECTIONAL SERGEANT [facility] EN[facility] Last Pap Date NONE 08/06/2023 9:11 AM CORRECTIONAL SERGEANT [facility] Last Pap Result First Pap/Unknown 9:11 AM CORRECTIONAL SERGEANT [facility] EN[facility] Abnormal Pap or [place] Bx in last 5 years No 08/06/2023 9:11 AM CORRECTIONAL SERGEANT [facility] Menstrual Status Regular Periods 08/06/2023 9:11 AM CORRECTIONAL SERGEANT [facility] ENTRAL [facility] [place] Bx Done Today No 08/06/2023 9:11 AM CORRECTIONAL SERGEANT [facility] Additional Information None given 08/06/2023 9:11 AM CORRECTIONAL SERGEANT [facility] Comment: Cytology is screened at [facility] - [address] [facility] [address], [place] [address] and [facility] - [address], [place] [address] and [facility] - [address] [place] [address] Interpreted at [facility] - [address], [place] [address] Automated Review Successful 08/06/2023 9:11 AM CORRECTIONAL SERGEANT [facility] Comment:Specimen processed s uccessfully by automated chief dog license inspector device, ThinPrep Imaging System, [employer] Note The pap test is a screening technique, not a diagnostic procedure. It is used primarily to screen for squamous cancers and precursor lesions. Published studies have shown that it is subject to both false negative and false positive results. The pap test should not be used as the sole means to diagnose or exclude pre-malignant and malignant lesions. 08/06/2023 9:11 AM CORRECTIONAL SERGEANT [facility] Other (Cervical) Non-Blood / Unknown 07/28/2023 9:21 AM CORRECTIONAL SERGEANT 07/28/2023 10:04 AM CORRECTIONAL SERGEANT Neela Yanez DO PATHOLOGY/CYTOLOGY [facility] [address] [place] [address], [place] * ANTI HCV (09/03/2021 9:45 AM CORRECTIONAL SERGEANT) HEPATITIS C ANTIBODY Non-React rosalia Non-React rosalia 09/03/2021 3:46 PM CORRECTIONAL SERGEANT [facility] Comment:Antibodies to HCV no t detected; does not exclude the possibility of exposure to HCV. Blood BLOOD SPECIMEN / Unknown Venipuncture / Unknown 09/03/2021 9:45 AM CORRECTIONAL SERGEANT 09/03/2021 9:45 AM CORRECTIONAL SERGEANT Neela Yanez DO SEND OUTS [facility] [address] [place] [address], [place] * ANTI HIV 1/2 [21155.0] (10/17/2020 12:55 PM CORRECTIONAL SERGEANT) Pathologist [facility] HIV-1/HIV-2 ANTIBODY Non-Reacti ve Non-Reacti ve 10/17/2020 8:35 PM CORRECTIONAL SERGEANT [facility] Comment:HIV-1 p24 and HIV-1/ HIV-2 Ab not detected. Blood BLOOD SPECIMEN / Unknown Venipuncture / Unknown 10/17/2020 12:55 PM CORRECTIONAL SERGEANT 10/17/2020 12:55 PM CORRECTIONAL SERGEANT Kathe Roca MD SEND OUTS [facility] [address] [place] [address], [place] from Last 3 Months or Most Recently Relevant to Health Maintenance Care Teams Filtration Plant Operator Relationship Specialty [place] [address] [place], [place] [id number] PCP - General Family Practice 06/23/23
--- OUTSIDE RECORDS SUMMARY | 2024-04-06 04:39 | XMS_ITS | Referral Summary ---
Author Organization [facility] Address [address] [place] [address] Care Team Providers Care Biochemistry Professor Name Role Phone Unknown, Pcp MD Primary Care Provider Unavailabl e Source Comments The information displayed in Care Everywhere may not contain all available information, such as information contained in [email or web address] systems. Please fax requests for additional information to [facility]'s Health Information Management Department at .[facility] Allergies No known active allergies Medications Medication Sig Dispensed Refills Start Date End Date Status Ventolin HFA 90 mcg/actuation inhaler INHALE 2 PUFFS BY MOUTH EVERY 4 HOURS IF NEEDED (COUGH). 08/30/2021 Active Advair HFA 230-21 mcg/actuation inhaler TAKE 2 PUFFS BY MOUTH TWICE A DAY 05/28/2022 Active fluticasone propionate (FLONASE) 50 mcg/actuation nasal spray INHALE 1 SPRAY TO BOTH NOSTRILS ONCE DAILY. 06/06/2022 Active hydrOXYzine (VISTARIL) 25 mg capsule TAKE 1 CAPSULE (25 MG) BY MOUTH 3 TIMES DAILY IF NEEDED FOR ANXIETY. 03/13/2022 Active montelukast (SINGULAIR) 10 mg tablet Take 1 tablet by mouth every evening Active ondansetron ODT (ZOFRAN-ODT) 4 mg disintegrating tablet 10/13/2021 Act rosalia citalopram (CeleXA) 10 mg tablet Take 10 mg by mouth daily Active cephalexin (KEFLEX) 500 mg capsule 02/13/2023 Active Banophen 25 mg capsule 01/25/2023 Ac tive hydrocortisone 1 % cream 01/25/2023 Active hydrocortisone 2.5 % cream APPLY TOPICALLY TO AFFECTED AREA(S) TWO TIMES DAILY FOR 14 DAYS. TO EYELIDS TWICE DAILY X 2 WEEKS. 02/28/2023 Active phenazopyridine (PYRIDIUM) 100 mg tablet 02/13/2023 Active triamcinolone (KENALOG) 0.1 % cream APPLY TOPICALLY TO AFFECTED AREA(S) TWO TIMES DAILY. UP TO 2 WEEKS FOR ECZEMA FLARE. 02/28/2023 Active triamcinolone (KENALOG) 0.1 % ointment apply 1 APPLICATION topically to affected area twice a day for 10 days then if needed for 30 DAYS 01/23/2023 Active triamcinolone (KENALOG) 0.1 % ointment every 12 (twelve) hours 01/23/2023 Active Active Problems Problem Noted Date Diagnosed Date JOSE RAFAEL (obstructive sleep apnea) 03/18/2023 Last Assessment & Plan: Sleep study results indicate mild JOSE RAFAEL AHI 5.2, increased in REM AHI 12 in supine sleep AHI 30 Sleep study results reviewed in detail, copy of study given for home records. Discussed options for treating mild JOSE RAFAEL severe in supine sleep. JOSE RAFAEL pathophysiology reviewed along with cardiovascular risk factors if left untreated. Advised position therapy, CPAP or oral appliance. She will implement position therapy while waiting for CPAP. How CPAP works to keep airway patent reviewed. She is not certain she will tolerate CPAP but is open to trial. Will start with APAP 4-16 EPR level 2 and N 30 nasal mask. Compliance requirements reviewed Pap management 2 weeks after starting CPAP to evaluate efficacy and troubleshoot any barriers to treatment. RTC provider for compliance If she is unable to tolerate CPAP we did discuss transitioning to oral appliance therapy. Anxiety 01/07/2023 Carpal tunnel syndrome of right wrist 01/07/2023 Depression with anxiety 01/07/2023 Last Assessment & Plan: CCM per primary care Plan to start PAP therapy which will assist in mood stabilization Menorrhagia with regular cycle 01/07/2023 Mild persistent asthma without complication 05/2023 Mixed hyperlipidemia 01/07/2023 Erythrocytosis 06/17/2022 Last Assessment & Plan: CCM per Hematology-Oncology Dr. Bruner Plan to treat underlying JOSE RAFAEL with CPAP to assist in CV stabilization. Social History Tobacco Use Types Packs/Day Years Used Date Smoking Tobacco: Never Smokeless Tobacco: Never Alcohol Use Standard Drinks/Week Comments Not Currently 0 (1 standard drink = 0.6 oz pur e alcohol) Sex and Gender Information Value Date Recorded Sex Assigned at Not on file Gender Identity Not on file Sexual Orientation Not on file Last Filed Vital Signs Vital Sign Reading Time Taken Comments Blood Pressure 103/71 03/18/2023 10:03 AM PDT Pulse 88 03/18/2023 10:03 AM PDT Temperature 37 ??C (98.6 ??F) 03/18/2023 10:03 AM PDT Respiratory Rate 16 03/18/2023 10:03 AM PDT Oxygen Saturation 99% 03/18/2023 10:03 AM PDT Inhaled Oxygen Concentration - - Weight 86.2 kg (190 lb) 03/18/2023 10:03 AM PDT Height 162.6 cm (5' 4) 03/18/2023 10:03 AM PDT Body Mass Index 32.61 03/18/2023 10:03 AM PDT Plan of Treatment Not on file Procedures Procedure Name Priority Date/Time Associated Diagnosis Comments HEPATITIS B SURFACE ANTIBODY Routine 11/26/2022 11:47 AM PDT Abnormal liver enzymes NAFLD (nonalcoholic fatty liver disease) from Last 3 Months or Most Recently Relevant to Health Maintenance Results * Hepatitis B Surface Antibody (11/26/2022 11:47 AM PDT) Hep B S Ab Non-Reacti ve 11/26/2022 1:30 PM PDT [facility] Hep B S Ab, QT <3.10 Non-reacti ve: <8.0 mIU/mL, Reactive: >/= 10.0 mIU/mL mIU/mL 11/26/2022 1:30 PM PDT [facility] Blood (Blood, Venous) Venipuncture / Unknown 11/26/2022 11:47 AM PDT 11/26/2022 11:50 AM PDT Pushpa Pires MD LAB BLOOD ORDERABLES [facility] [address] [place] [address] from Last 3 Months or Most Recently Relevant to Health Maintenance Advance Directives Documents on File Type Date Recorded Patient Dispute Coordinator Expl anation Advance Directives and Livin g Will 06/17/2022 3:20 PM Care Teams Biochemistry Professor Relationship Specialty Start Date End Date Unknown, PcpMD [id number] [address] [place], [place] [address] PCP - General 06/13/22
--- OUTSIDE RECORDS SUMMARY | 2024-04-06 04:39 | XMS_ITS | Patient Health Record ---
Author Organization [facility] Address [address] [address] [place] [place] [address] Care Team Providers Care Dean Of Education Name Role Phone ZENON SAM, MIKE Primary Care Provider [phone] DARLING REN [phone] Allergies No Known Allergies Reason For Referral No Information Medications Medication SIG (Take, Route, Frequency, Duration) Notes [...] every 4 hrs for 30 days Active Social History Tobacco Use: Social History Observation Description Date Details (start date - stop date) Never Smoker NA - NA Sex Assigned At : Social History Observation Description Sex Assigned At Female Tobacco Use/Smoking Question Answer Notes Smoking Status : nonsmoker Alcohol Screen (Audit-C) Question Answer Notes Did you have a drink containing alcohol in the p ast year? No Points 0 Interpretation Negative Problems Problem Type SNOMED Code ICD Code Onset Dates Problem Status W/U Status Risk Notes Problem 519152888 Mixed hyperlipidemia (E78.2) Active confirmed Problem 49671074 Paresthesia of skin (R20.2) Active confirmed Problem 22393870 Anxiety (F41.9) Active confirmed Problem 826743869 Seasonal allergies (J30.2) Active confirmed Problem 205446796 Morbid obesity (E66.01) Active confirmed Problem 178688804 Depression with anxiety (F41.8) Active confirmed Problem 353116556 Menorrhagia with regular cycle (N92.0) Active confirmed Problem 10787171 Carpal tunnel syndrome of right wrist (G56.01) Active confirmed Problem 910379410 Mild persistent asthma without complication (J45.30) Active confirmed Problem 00783908 Reactive depression (F32.9) Active confirmed Problem Increased melanin pigmentation (96433537) Lentigines (L81.4) Active confirmed Problem 919175835004487 Mild persistent asthma with acute exacerbation (J45.31) Problem resolved confirmed Vital Signs Height-cm 162.56 cm 04/15/2023 Lynda Smith MA 04/15/2023 11:12:12 AM > Weight-kg 84.91 kg 04/15/2023 Lynda Smith MA 04/15/2023 11:12:12 AM > Height 64 in 04/15/2023 Lynda Smith MA 04/15/2023 11:12:12 AM > Weight 187.2 lbs 04/15/2023 Lynda Smith MA 04/15/2023 11:12:12 AM > BMI 32.13 kg/m2 04/15/2023 Lynda Smith MA 04/15/2023 11:12:12 AM > Encounters Encounter Location Date Provider Diagnosis [facility] [address] [address] [place] [address] 04/15/2023 DARLING LACY Keratosis pilaris L85.8 and Lentigines L81.4 [facility] [address] [address] [place] [address] 05/22/2023 MIKE YARBROUGH Assessments Encounter Date Diagnosis (ICD Code) Assessment Notes Treatment Notes Treatment Clinical Notes 04/15/2023 Keratosis pilaris (ICD-10 - L85.8) Discussed in detail Reassurance given Recommend to use a loofa sponge to exfoliate and moisturizing lotion Follow up PRN 04/15/2023 Lentigines (ICD-10 - L81.4) 04/15/2023 Other Medication discussed. Plan printed and provided to patient. For each diagnosis; data was reviewed, the diagnosis, differential diagnosis, management, options, risks and treatment plan were discussed with the patient. The patient showed and assured me of good understanding of all discussions and directions. Provided: Patient Education Plan Of Treatment Pending Test Test Name Order Date Urine Dipstick (Point of Care) 1 Urine Dipstick (Point of Care) 2 US Transvaginal 06/11/2021 Immunoglobulins A/G/M, Qn, Ser 2 Urinalysis, Routine no Micro if negative 05/14/2021 Urinalysis, Routine no Micro if negative 06/11/2021 Ferritin, Serum 05/30/2022 CBC With Differential/Platelet 2 Actin (Smooth Muscle) Antibody 2 Comp. Metabolic Panel (14) 05/30/2022 Comp. Metabolic Panel (14) 10/18/2021 CHEPE 05/30/2022 TSH Rfx on Abnormal to Free T4 3 UA/M w/rflx Culture, Routine 10/18/2021 Insurance Providers Payer Name Payer Address Payer Phone Subscriber Number Group Number Insured Name Patient Relationship to Insured Coverage Start Date Coverage End Date [facility] [address] [place] [phone] [id number] Lorie Vizcaino Self - patient is the insured [facility] [address] [place] [address] [id number] Prieto Vizcaino Spouse - patient is the spouse of the insured Medical (General) History Medical History History ICD Code asthma anxiety depression ADD Elevated hemoglobin D58.2 Mild persistent asthma with acute exacer bation (resolved 01/23/2023) undefined
--- OUTSIDE RECORDS SUMMARY | 2024-04-06 04:39 | XMS_ITS | Clinical Summary ---
Author Organization [facility] Address [address] [place] [address] Care Team Providers Care Certified Legal Investigator Name Role Phone Unknown, Pcp MD Primary Care Provider Unavailabl e Source Comments The information displayed in Care Everywhere may not contain all available information, such as information contained in [facility] [employer] systems. Please fax requests for additional information to [facility]'s Health Information Management Department at .[facility] Allergies No known active allergies Medications [...] with CPAP to assist in CV stabilization. Family History Medical History Relation Name Comments Sleep apnea Father Multiple sclerosis Mother Relation Name Status Comments Father Alive Mother Alive Social History Tobacco Use Types [...] 03/18/2023 10:03 AM PDT Plan of Treatment Health Maintenance Due Date Last Done Comments Pap Smear 2001 Pneumococcal Vaccine 0-64 yrs (1 of 2 - PCV) 2007 HPV Vaccines (1 - 3-dose series) 2016 DTaP,Tdap,and Td Vaccines (1 - Tdap) 2019 Hepatitis B Vaccines (1 of 3 - 19+ 3-dose series) 2020 COVID-19 Vaccine(s) (1 - 2022-24 season) 2023 Influenza Vaccine (#1) 2024 Hepatitis B Screening (Annual) Discontinued 11/26/2022, 11/26/2022, 08/30/2022 Hepatitis A Vaccines Aged Out No long er eligible based on patient's age to complete this topic IPV Vaccines Aged Out No longer eligi ble based on patient's age to complete this topic Procedures Procedure Name Priority Date/Time Associated Diagnosis Comments HEPATITIS B SURFACE ANTIBODY Routine 11/26/2022 11:47 AM PDT Abnormal liver enzymes NAFLD (nonalcoholic fatty liver disease) from Last 3 Months or Most Recently Relevant to Health Maintenance Results * Hepatitis B Surface Antibody (11/26/2022 11:47 AM PDT) Hep B S Ab Non-Reacti ve 11/26/2022 1:30 PM PDT [facility] Hep B S Ab, QT <3.10 Non-reacti ve: <8.0 mIU/mL, Reactive: >/= 10.0 mIU/mL mIU/mL 11/26/2022 1:30 PM PDT [facility] Blood (Blood, Venous) Venipuncture / Unknown 11/26/2022 11:47 AM PDT 11/26/2022 11:50 AM PDT Pushpa Pires MD LAB BLOOD ORDERABLES [facility] [address] [facility] [place] [id number] from Last 3 Months or Most Recently Relevant to Health Maintenance Advance Directives Documents on File Type Date Recorded 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 [id number] PCP - General 06/13/22
--- OUTSIDE RECORDS SUMMARY | 2024-04-06 04:39 | XMS_ITS | Encounter Summary ---
Author Organization [facility] Address [address] [place] [address] Care Team Providers Care Customer Care Associate Name Role Phone Unknown, Pcp Primary Care Provider Unavailabl e Encounter Details Date Type Department Care Team (Late st Contact Info) Description 06/18/2022 Lab Requisition Main Lab at [facility] [address] [facility] [place], [place] [id number] [place] [address] [facility] [address] [facility] [place], [place] [id number] Secondary polycythemia Social History Tobacco Use Types Packs/Day Years [...] on file documented as of this encounter Procedures Procedure Name Priority Date/Time Associated Diagnosis Comments LAB USE ONLY - MISCELLANEOUS AP Routine 06/17/2022 3:16 PM PDT Secondary polycythemia documented in this encounter Results * LAB USE ONLY - MISCELLANEOUS AP (06/17/2022 3:16 PM PDT) Final Diagnosis FISH RESULTS: FISH BCR/ABL1/ASS1 t(9;22): Negative Please see the attached report for details. 07/01/2022 4:02 PM PDT [facility] Gross Description Peripheral blood. 07/01/2022 4:02 PM PDT [facility] Case Report Reference Lab Pathology Report ?Case: [id number] ? Authorizing Provider: ??David Walker NP ? Collected: ? 06/17/2022 1516 ? Ordering Location: ? Main Lab at [facility] ?? Received: ?06/18/2022 1043 ? Pathologist: ? Rob Randle MD ? Specimen: ?Blood, Peripheral, 1Lav; 1 Green ? 07/01/2022 4:02 PM PDT [facility] Disclaimer This report was generated using speech recognition software. 07/01/2022 4:02 PM PDT [facility] Blood (Blood, Peripheral) 06/17/2022 3:16 PM PDT 06/18/2022 10:43 AM PDT David Walker [facility] LAB PATHOLOGY/CYTOLO GY ORDERABLES [facility] [address] [place] [address] documented in this encounter Visit Diagnoses Diagnosis Secondary polycythemia Polycythemia, secondary documented in this encounter Care Teams Customer Care Associate Relationship Specialty Start Date End Date Unknown, Pcp, [address] [place] [address] PCP - General 06/13/22 documented as of this encounter
== END 2024-04-06 04:54 | disposition home or self-care (01) ==
LOC: ED 04:36
PROVIDERS: Emergency Provider Family Medicine; PCP Family Medicine
DX: R51.9 Headache, unspecified (principal)
CPT/HCPCS: 99282; 99283; A9270